=== PATIENT | female | born 1935 | race Caucasian/White ===

== ENCOUNTER 2022-03-18 16:47 | Inpatient (IN) | payer MEDICARE ==
[~2022-03-18] VITALS: Ht 167.6 cm; Wt 69.5 kg
[~2022-03-18 16:47] MED LIST: AMITRIPTYLINE H10 MG PO; ATIVAN1 MG PO; CARTIA XT120 MG PO; COMBIVENT INH14.7 GM INH; DIGITEK125 MCG PO; DIGOXIN125 MCG PO; ELIQUIS5 MG PO; FASLODEX250 MG/5 M IM; FEMARA2.5 MG NG; FLONASE SENSIM9.9 ML NAS; FLOVENT DISKU250 MCG IH; FOSAMAX70 MG; IBRANCE125 MG PO; IPRAT-ALBUT 0.5-3 ML INH; KLOR-CON 1010 MEQ PO; LETROZOLE2.5 MG PO; LEVOXYL112 MCG PO; MAGNESIUM250 M1 PO; MAXZIDE 37.5 MG-1 EA PO; METOPROLOL SUC200 MG PO; NORCO 5-325 TA1 EACH PO; OMEPRAZOLE20 MG PO; PRADAXA150 MG PO; PROAIR HFA8.5 GM IH; SYNTHROID125 MCG PO; TENORMIN25 MG PO; THERAGRAN-M AD1 EACH PO; TORSEMIDE20 MG PO; XGEVA120 MG/1.7 SUB-Q
[2022-03-18] MEDS ORDERED: ALLOPURINOL100 MG PO (17:06)
[2022-03-18] MEDS ORDERED: LEVOTHYROXINE112 MCG PO (17:07)
--- NOTE | 2022-03-19 00:52 | NUR ---
PATIENT ORIENTED TO ROOM AND CALL LIGHT. REPORT TAKEN FROM CRISTINA REYNAGA. PATIENT SETTLED INTO BED BY HINA REYNAGA. VS STABLE.
--- NOTE | 2022-03-19 03:04 | NUR ---
PATIENT RESTING IN BED WITH EYES CLOSED. EASILY ARROUSED. CALL LIGHT IN REACH AND CAN MAKE NEEDS KNOWN.
--- NOTE | 2022-03-19 05:07 | NUR ---
ASSISSTED PATIENT TO BEDSIDE COMMODE WITH 1 PERSON ASSIST. PATIENT REPORTS FEELING WEEK. USES CALL LIGHT APPROPRIATELY.
--- NOTE | 2022-03-19 05:48 | NUR ---
PATIENT HAD A BM THIS AM. BLOOD ON TOILET PAPER. PATIENT REPORTS HAVING HEMROIDS. PATIENT IS ALERT AND ORIENTED X3 (NOT TO TIME). REPORTS SEEING BIRDS IN HER ROOM. REORIENTED TO ROOM. USES CALL LIGHT APPROPRIATELY.
--- NOTE | 2022-03-19 07:36 | NUR ---
REPORT RECEIVED, CARE OF PT ASSUMED AT THIS TIME.CALL LIGHT WITHIN REACH. WILL CONTINUE TO MONITOR.
--- NOTE | 2022-03-19 08:08 | NUR ---
IN ROOM FOR ASSESSMENT AND AND MEDICATION ADMINISTRATION. PT RESTING IN BED. DENIES PAIN BUT DOES REPORT MILD NAUSEA. REFUSES NEED FOR NAUSEA MEDICATION. LUNGS SOUND DIM IN BILATERAL BASES. HEART RATE IS IRREGULAR. PULSES STRONG IN RIDAL PULSES. DIFFICULT TO PALPATE PEDAL PULSES THROUGH PT'S SIGNIFICANT LOWER EXTREMITY EDEMA. PLAN OF CARE FOR DAY ESTABLISHED. PT DOES NOT SEEM TO TRACK INFORMATION PROVIDED. BED ALARM IN PLACE. CALL LIGHT WITHIN REACH. WILL CONTINUE TO CLOSELY MONITOR.
--- NOTE | 2022-03-19 09:30 | NUR ---
2PA TO BSC FOR STOOL AND SMALL AMOUNT OF DARK URINE. LINEN CHANGED. PATIENT BACK TO BED, CALL LIGHT IN EASY REACH. FAMILY IN ROOM.
--- NOTE | 2022-03-19 11:15 | NUR ---
DR LORENZO IN ROOM AT THIS TIME TO ASSESS PT. PLAN ESTABLISHED FOR PT TO BECOME A MEDICAL FLOOR PT. ALL PT QUESTIONS ANSWERED AT THIS TIME. PT'S FRIEND IN ROOM AT BEDSIDE VISITING. CALL LIGHT WITHIN REACH. WILL CONTINUE TO MONITOR.
--- NOTE | 2022-03-19 11:54 | NUR ---
ASSESSMENT UNCHANGED PT NOW DRINKING CLEAR LIQUIDS. IV FLUIDS INFUSING. FRIEND AT BEDSIDE VISITING WITH PT. NO FURTHER NEEDS AT THIS TIME.
--- NOTE | 2022-03-19 12:40 | NUR ---
PT UP TO BSC AT THIS TIME.
[2022-03-19] MEDS ORDERED: MAGNESIUM OXID500 MG PO (13:28)
[2022-03-19] MEDS ORDERED: VENTOLIN HFA18 GM INH (13:32)
[2022-03-19] MEDS ORDERED: SYMBICORT 16010.2 GM INH (13:33)
--- NOTE | 2022-03-19 14:29 | EKG ---
[facility] [address] [place], [place] [address] Signed Atrial fibrillation Minimal voltage criteria for LVH, may be normal variant ( Perry product ) Lateral infarct , age undetermined ST \T\ T wave abnormality, consider anterior ischemia Abnormal ECG No previous ECGs available Confirmed by BOAZ LORENZO MD ([id number]) on 03/19/2022 2:29:29 PM Electronically Signed By: OBAZ LORENZO MD 03/19/22 1429 PATIENT NAME: DEBORAH BARRY VALENTE Electrocardiogram DATE OF : 37 PHYSICIAN: BOAZ LORENZO MD REPORT #: [id number] REPORT IS CONFIDENTIAL AND NOT TO BE RELEASED WITHOUT AUTHORIZATION
--- NOTE | 2022-03-19 14:31 | NUR ---
PT SAT ON BEDSIDE COMMODE FOR OVER AN HOUR, REFUSED TO GET UP. THERAPEUTIC COMMUNICATION. PT HAS A MEDIUM FORMED BM, DID NOT URINATE. RECTUM WAS PROLAPSED BUT ABLE TO BE REDUCED MANUALLY. PT NOW LAYING ON BED ON LEFT SIDE. CALL LIGHT WITHIN REACH.AND BED ALARM IN PLACE. WILL CONTINUE TO MONITOR.
--- NOTE | 2022-03-19 15:04 | NUR ---
PT BLADDER SCANNED. 95 MLS FOUND IN BLADDER. DR LORENZO UPDATED ON ASSESSMENT FINDINGS. ORDERS RECIEVED (SEE EMAR). PLAN TO STILL MOVE PT TO THE MEDICAL FLOOR.
--- NOTE | 2022-03-19 15:40 | NUR ---
PT BROUGHT TO M/S VIA BY FROM CCU WITH SOFTWARE QUALITY ASSURANCE SPECIALIST. IVF INFUSING. PT ASKING ABOUT HER LUNCH AND IS WORRIED ABOUT HER LOOKS. LUNCH TRAY BROUGHT DOWN, PT REASSURED. FRIEND ANA ROSA AT BEDSIDE.
--- NOTE | 2022-03-19 18:00 | NUR ---
500 ML FLUID BOLUS FINISHED, REPEAT BP 81/48, MANUAL RECHECK 82/48, HR 84, O2 98%. GOT PT UP TO COMMODE WITH 1PA. PT TRIED TO GO BUT NO URINE, QUARTER SIZED DROP OF SOFT STOOL, PASSING GAS, SMALL AMOUNT OF BLOOD ON TISSUE AFTER WIPING (KNOWN HEMORRHOIDS). BOTTOM IS VERY RED, NO PROLAPSE SEEN AT THIS TIME. PT RETURNED TO BED, BLADDER SCANNED AT 392 ML. NOTIFIED, AWAITING ORDERS FOR SECOND FLUID BOLUS.
--- NOTE | 2022-03-19 18:50 | NUR ---
FLUID BOLUS STARTED, PT SITTING UP IN BED STILL WORKING ON HER DINNER. PT VERY APOLOGETIC ABOUT NEEDING HELP, NOT EATING FAST ENOUGH ETC. REASSURED HER. RESP EVEN AND UNLABORED, CALL LIGHT IN REACH.
--- NOTE | 2022-03-19 19:15 | NUR ---
SHIFT REPORT RECEIVED FROM DAYSHIFT RONNELL SIDDIQUI AT BEDSIDE. pt AWAKE AND RESTING IN BED, FINISHING UP DINNER. pt VERY INTERACTIVE WITH STAFF AND APOLOGETIC REGARDING CALLING OR NEEDS. IV BOLUS INFUAING DIRECTED ALONG WITH ORDERED IV MAINTENNACE FLUIDS, IV SITE WNL. BOARD UPDATED, CALL LIGHT IN REACH.
--- NOTE | 2022-03-19 20:25 | NUR ---
SCHEDULED EVENING MED GIVEN (SEE EMAR). pt SOMEWHAT FIDGETY IN BED AND FIXATES ON THINGS LIKE BRUSHING HER TEETH, HAVING A BM, GETTING HER BREAKFAST ORDER, HER ONCOLOGIST KNOWING HER HOSPITALIZATION, ECT. pt REMAINS VERY APOLOGETIC AND MAKES STATESMENTS SUCH , "OH IM SORRY, I KNOW YOU GUYS ARE BUSY". pt REMAINS FORGETFUL, BUT ORIENTED TO SELF, PLACE, DATE- REORIENTED TO SITUATION AND TIME. pt UP TO VOID, 300MLS OUTPUT NOTED ALONG WITH SMALL PEBBLE LIKE BM PER MECHANISM INSPECTOR. pt RECENTLY FINISHED HER MIRALAX FROM [place]. LARGE VOLUMES OF GAS HEARD FROM BSC. pt SAT ON BSC FOR OVER 30 MINUTES AND THEN HAD TO BE COAXED OFF OF BSC AND REPEATEDLY STATED THINGS LIKE, "ALMOST DONE, IT'S ALMOST THERE". THERAPEUTIC COMMUNICATION PROVIDED. SMALL RECTAL PROLAPSE NOTED, MANUALLY REDUCED W/O DIFFICULTY. REMAINS IN AFIB, HR WHEN OOB WENT UP TO 168, BUT QUICKLY RETURNED TO BASELINE TO 70-90'S ONCE SITTING ON BSC. THIS RN DISCUSSED WITH CCU RONNELL ELLIOTT AND PER RONNELL ELLIOTT, TELE READING WAS LARGLY ARTIFACT AND WHEN SHE REVIEWED TELE ACTUAL HIGHEST HR WAS ONLY 120BPM, DIRECT CARE SPECIALIST MONICA UPDATED. pt REMAINED ASYMPTOMATIC DURING THIS TIME. pt BACK IN BED, BOOSTED AND BED ALARM ON FOR SAFETY. CALL LIGHT IN REACH AND ASSESSMENT COMPLETE. IV SITE WNL, BOLUS COMPLETE AND IV MAINTENACNE FLUIDS REMAIN INFUSING DIRECTED. IV SITE WNL, AND BRISK BLOOD RETURN NOTED. pt ASSISTED WITH EVENING CARES, NO OTHER ADDITIONAL NEEDS OR CONCERNS VERBALIZED. WILL CONTINUE TO MONITOR.
--- NOTE | 2022-03-19 22:29 | NUR ---
IN ROOM TO ENSURE TELE LEADS SECURE, LARGE AMOUNT ARTIFACT NOTED. pt THEN ASKING TO FOR LOTION FOR HER FACE AND ASKS "AND YOU WANT ME TO CALL YOU IF I NEED A WARM BLANKET". pt EDUCATED TO USE CALL LIGHT FOR NEEDS, BED ALARM ON AND CALL LIGHT IN REACH. AFIB REMAINS, HR 80'S.
--- NOTE | 2022-03-19 23:50 | NUR ---
call light answered by airport attendant, pt up 2pa with fww to void. pt remains very apologetic, no bm or void noted. no prolapse noted. pt back to bed, tolerated well. bed alarm on and call light in reach, airport attendant marv in room to assist with tucking in pt.
--- NOTE | 2022-03-19 23:55 | NUR ---
PT CALLED TWO TIMES, PT HEARS A PERSON TALKING TO HER, TV OFF, STILL HEARIG THIS PERSON, ASKED PT TO POINT TO WHERE VOICE IS COMING FROM, POSSIBLE IV PUMP NOISES DETERMENED CAUSE, MOVED PUMP BACK, THEN PT FEELS LIKE SHE NEEDS TO VOID, RN IN TO HELP, PT PIVOTS TO BSC 2PA FWW, SITS AWHILE, NO RESULTS, BACK TO BED, ALARM ACTIVE, NO FURTHER NEEDS AT THIS TIME
--- NOTE | 2022-03-20 01:50 | NUR ---
0200 vss, sbp somewhat soft, will monitor. pt attends dry, bladder scan result of 378, charge lpn updated. iv site somewhat positional, new dressing in place. brisk blood return noted, iv fluids resumed per md orders. no additional needs, call light in reach. bed alarm on.
--- NOTE | 2022-03-20 02:53 | NUR ---
pt RESTING IN BED WITH EYES CLOSED, ON RA. RR EVEN AND UNLABORED. NO DISTRESS NOTED. IV SITE WNL, FLUIDS INFUSING DIRECTED. BED ALARM ON AND CALL LIGHT IN REACH.
--- NOTE | 2022-03-20 05:17 | NUR ---
pt CONTINUES TO REST QUIETLY IN BED WITH EYES CLOSED, ON RA. RR EVEN AND UNLABORED. NO DISTRESS NOTED, BED ALARM ON AND CALL LIGHT IN REACH.
--- NOTE | 2022-03-20 05:45 | NUR ---
vs and i&o's complete. assessment complete no acute changes, pt reoriented to place, thought she was at an "institution". pt up to void 2pa with fww to bsc, armor reconnaissance vehicle crewman remains in room with pt. call light also in reach.
--- NOTE | 2022-03-20 06:30 | NUR ---
pt UNABLE TO VOID, BLADDER SCANNED FOR 477MLS AFTER SITTING ON BSC FOR OVER 15-20 MINUTES. IV FLUIDS COMPLETE, IV SITE WNL AND BRISK BLOOD RETURN NOTED. pt EDUCATED ON POC AND POSSIBLY DISCUSSED NEED FOR STRAIGHT CATHETER, pt IMMEDIATELY GOT UPSET AND STATES, "OH NO, YOU'RE NOT GONNA DO THAT". DR LORENZO UPDATED ON ABOVE INFORMATION AND UO OF 300MLS EARLIER IN SHIFT, PER DR LORENZO OKAY TO WAIT AND CONTINUE TO MONITOR UO. BED ALARM ON AND FRESH COFFEE PROVIDED. pt REPEATEDLY MAKES STATEMENTS R/T NEEDING TO NOTIFY HER ONCOLOGIST FOR HER HOSPITALIZATION, pt REORIENTED THAT HER DOC HERE IS DR LORENZO AND HE WILL SEE pt SOMETIME TODAY. CALL LIGHT IN REACH. SCHEDULED THYROID MED GIVEN.
--- NOTE | 2022-03-20 07:10 | NUR ---
REPORT RECEIVED FROM RONNELL BRO. PT SITITNG UP IN BED, AWAKE AND ALERT. PT WAVING AT STAFF OUTSIDE HER ROOM. NO ADDITIONAL NEEDS AT THIS TIME. BED RAILS UP. CALL LIGHT WITHIN REACH. BED ALARM ON.
--- NOTE | 2022-03-20 07:33 | NUR ---
MORNING ASSESSMENT AND MEDICATION DUE. PT CONTINUES RESTING IN BED. PT REPORTS "CAN YOU TELL ME WHY I'M HERE." EXTENSIVE EDUCATION DONE WITH PT AND PT CONTINUES TO REPEAT QUESTIONS ABOUT WHERE SHE IS AND WHY SHE IS HERE. PT HAS TROUBLE RETAINING INFORMATION BUT WHEN ASKED PT IS ABLE TO STATE WHERE SHE IS, THE MONTH AND TIME OF DAY. PT OTHERWISE INCONSISTANTLY OREINTED. PT FIXATED ON CONTACTING VARIOUS PEOPLE. PLAN MADE WITH PT AND PT CALMS AND IS ABLE TO FOLLOW DIRECTIONS. PT ALSO CONTINUES TO BE FIXATED ON "GETTING MY ONCOLOGIST IN HERE." PT ASSURED THAT HER ONCOLOGIST IS AWARE OF HER HOSPITAL STAY. PT DENIES PAIN AND NAUSEA. ONE PERSON ASSIST WITH FWW UP TO CHAIR. PT NEEDS FREQUENT QUEING. LUNG SOUNDS CLEAR BUT FOR WHEEZE NOTED IN RIGTH UPPER LOBE. NO COUGH NOTED AT THIS TIME. OXGYEN SATURATION 93% ON ROOM AIR. HEART RATE IRREGULAR WITH AFIB NOTED ON TELEMETRY MONTIROING, HEART RATE IN THE 90'S. +1 PITTING EDEMA CONTINUES TO BLE AND FEET. ABDOMEN SOFT AND NON TENDER. BOWEL TONES ACTIVE. PT CONTINUES TO DENY NEED TO VOID, MONITORING, MD AWARE OF PTS URINE OUTPUT. MEDICATIONS GIVEN. PT REMAINS UP TO CHAIR. WARM BLANKETS PROVIDED. NO ADDITIONAL NEEDS AT THIS TIME. CALL LIGHT [place]ARC[place]IO CAMILO.
--- NOTE | 2022-03-20 07:50 | NUR ---
patient in the bathroom with RONNELL Artis. then patient went to the chair for breakfast. call light with in reach. no further needs at this time.
--- NOTE | 2022-03-20 07:52 | NUR ---
PT REPORTS SHE WOULD LIKE TO GET UP TO RESTROOM. 1 PERSON ASSIST WITH FWW UP TO RESTROOM. PT SITS FOR +15 MINUTES ON TOILET. HEART RATE UP TO 120'S WHILE PT IS ON TOILET. PT VOIDS 300ML DARK YELLOW URINE. DEPENDS CHANGED. PT PERFORMS SELF CLIFFORD CARE. 1 PERSON ASSIST WITH FWW BACK TO CHAIR. WARM BLANKETS IN PLACE. CALL LIGHT WITHIN REACH. NO ADDITIONAL REQEUSTS OR COMPLAINTS AT THIS TIME.
--- NOTE | 2022-03-20 08:36 | NUR ---
BREAKFAST DELIVERED TO PT. PT TALKING WITH FRIEND ON THE PHONE. PT CONTINUES TO BE CONFUSED AND REPEATS SAME QUESITONS. PT REOIRNETED TO PLAN OF CARE AND EVENTS. PT EATING BREAKFAST. REMAINS UP TO CHAIR. CALL LIGHT WITHIN REACH.
--- NOTE | 2022-03-20 09:03 | NUR ---
PTS FRIEND, KATIE, ARRIVED TO BEDSIDE. KATIE UPDATED ON PT STATUS AND PLAN OF CARE. KATIE VERBALIZES UNDERSTANDING AND STATES HER QUESTIONS HAVE BEEN ANSWERED. KATIE AT BEDSIDE WITH PT. PT DOES NOT REMEMBER KATIE VISTING YESTERDAY. PT REORINTED TO EVENTS AND PLAN OF CARE AGAIN. PT VISITNG WITH KATIE, NO ADDITIONAL REQUESTS OR COMPLAINTS. CALL LIGHT WITHIN REACH. PT REMAINS UP TO CHAIR.
--- NOTE | 2022-03-20 09:41 | NUR ---
RN NOTIFIED OF SOFT BP. THIS ENRICHMENT ASSISTANT ATTEMPTED 3 TIMES WITH A RESULT OF 81/54, 60/47, AND 75/50.
--- NOTE | 2022-03-20 09:41 | NUR ---
THIS RN TO ROOM TO CHECK ON PT. PT TALKING WITH FRIEND ON PHONE. PT CONTINUES TO BE CONFUSED AND FORGETFUL, REPEATING SAME QUESTIONS. REHABILITATION PROGRAM MANAGER, REPORTS PTS BLOOD PRESSURE IS LOW. MANNUAL BLOOD PRESSURE TAKEN AND FOUND TO BE 84/44. PT DENIES DIZZINESS. PT DENIES PAIN AND NAUSEA. HEART RATE CONTINUES IN AFIB RYTHEM IN 100-110'S. PTS FRIEND, KATIE REMAINS AT BEDSIDE. IV SITE TO LEFT AC LEAKING, DRESSING CHANGED. DR LORENZO UPDATED REGARDING PTS ASSESSMENT AND VITAL SIGNS. AWAITING NEW ORDERS. NO ADDITIONAL NEEDS AT THIS TIME. CALL LIGHT WIHTIN REACH. PT REMAINS UP TO CHAIR.
--- NOTE | 2022-03-20 09:55 | NUR ---
NEW IV STARTED TO RIGHT FORARM PER PROTOCOL. PT TOELRATED WELL. PT REQUESTS REPOSITIONING. PT UP TO STAND FOR LESS THAN 10 SECONDS AND HEART RATE SUSTAINS IN THE 140'S. PT RECOVERS TO HEAR RATE OF 100-110'S AFTER 1 MINUTE. 1 PERSON ASSSIT WITH FWW BACK TO BED. MD UPDATED. BED RAILS UP. CALL LIGHT WITHIN REACH. BED ALARM ON.
--- NOTE | 2022-03-20 10:44 | NUR ---
NEW MEDICATIONS ARRIVED FROM [facility]. GIVEN ORDRED (SEE MAR). PT VISITING WITH FRIENDS AT BEDSIDE. PT CONTINUES ASK REPITIVE QUESTIONS. PTS FRIENDS HELPING PT TO STAY ORIENTED TO PLAN OF CARE AND ACITVIES. PHYSICAL THERAPY ARRIVED, PT ASKED TO RETURN THIS AFTERNOON AND REEVALUATE PT STATUS. NO ADDITIONAL NEEDS AT THIS TIME. CALL LIGHT WIHTIN REACH. BED RAILS UP. BED ALARM ON.
--- NOTE | 2022-03-20 11:09 | NUR ---
IV INFUSION OF DIGOXIN COMPLETE. PT FINISHED WITH BREAKFAST. PT REMAINS IN BED, REORINTED AGAIN TO PLAN OF CARE. PT ENCOURAGED TO REST AND WATCH TV. HR 90-110'S IN AFIB RYTHEM ON TELEMETRY MONITORING. NO ADDITIONAL NEEDS AT THIS TIME. CALL LIGHT WIHTIN REACH. BED RAILS UP. BED ALARM ON.
--- NOTE | 2022-03-20 11:40 | NUR ---
THIS RN TO ROOM TO CHECK ON PT. PT RESTING WITH EYES CLOSED. RESPIRATIONS EVEN AND UNLABORED. HEART RATE REMAINS IN THE 90-110'S IN AFIB RYTHEM. NO ADDITIONAL NEEDS AT THIS TIME. CALL LIGHT WITHIN REACH. BED RAILS UP. BED ALARM ON. PT ALLOWED TO REST.
--- NOTE | 2022-03-20 13:00 | NUR ---
PATIENT WENT TO THE [facility] AND HAD A SMALL BM WITH THE HELP OF RONNELL SMITH AND THIS PHARMACISTS. SHE SAT FOR A LITTLE BIT AND ONLY HAD A SMALL BM
--- NOTE | 2022-03-20 13:02 | NUR ---
THIS RN TO ROOM TO CHECK ON PT. PT EATING LUNCH. PT REPOSITIONED IN BED, HEAD OF BED ELEVATED TO 50 DEGREES. HEART RATE CONTINUES IN AFIB RYTHEM WITH HEART RATE IN THE 90-110'S. DR. LORENZO TO BEDSIDE FOR ROUNDS. BLOOD PRESSURE REASSESED, NOW 101/49. PT FEEDING SELF. NO ADDITIONAL REQUESTS OR COMPLAINTS. CALL LIGHT WITHIN REACH. BED RAILS UP. BED ALARM ON.
--- NOTE | 2022-03-20 13:37 | NUR ---
AFTERNOON ASSESSMENT AND MEDICAITON DUE. PT REMAINS IN BED WITH HEAD OF BED AT 51 DEGREES, EATING LUNCH. PT VISISTING WITH A FRIENDS AT BEDSIDE. PT REMAINS INCONSISTANTLY ORIENTED. PT STATES "I'M AT [facility] BUT I'M NOT IN THE HOSPITAL." PT OREINTED TO SELF AND MONTH AND YEAR. PT MAKES OCCATIONAL CONFUSED COMMENTS SUCH "I'M HERE BECAUSE I FELL WITHOUT ENOUGH BREAD." PT WORD DROPS WHEN TRYING TO TELL STORIES. GENERALIZED WEAKNESS TO BEL. PT REMAINS ON BED REST PER MD ORDER. LUNG SOUNDS CLEAR. HEART TONES REMAIN IRREGULAR WITH AFIB RYTHM ON MONITOR, HEART RATE 90-110. EDEMA TO BLE UNCHANGED. PT CONTINUES TO ASK REPETITIVE QUESTIONS. EDUCATION DONE AND PT REORIENTED TO EVENTS. MONITORING URINE OUTPUT. NO ADDITIONAL NEEDS AT THIS TIME. MEDICATIONS GIVEN. CALL LIGHT WIHTIN REACH. BED RAILS UP. BED ALARM ON.
--- NOTE | 2022-03-20 15:20 | NUR ---
THIS RN TO ROOM TO CHECK ON PT. 2ND MAGNESIUM DUE. PT TALKING TO HERSELF "I'M NOT GOING ANYWHERE, I'M IN CHARGE OF MYSELF. i"M GOING TO EAT ALL MY VEGETABLES." PT REORIENTED TO PLACE AND EVENTS. PT ENCROUAGED TO REST. PT CONTINUES EATING LUNCH STATING SHE WANTS TO "EAT IT ALL." NO ADITIONAL NEEDS AT THIS TIME. CALL LIGHT WITHIN REACH. BED RAILS UP. BED ALARMON.
--- NOTE | 2022-03-20 15:29 | NUR ---
PT HERE FOR SHILOH AND ELECTROLYTE IMBALANCES. PT UP TO CHAIR AND RESTROOM THIS SHIFT WITH ONE PERSON ASSIST AND FRONT WHEEL WALKER AFTER WHICH AFIB RVR WAS NOTED ON MONITOR. BLOOD PRESSURES ALSO NOTED TO BE SOFT THIS SHIFT. NEW CARDIAC MEDICAITONS STARTED. PT ON BED REST FOR REMAINDER OF SHIFT. PT TOELRATING REGULAR DIET WITH EXCELLENT APPITITE. PT AGITATED THROUGHOUT SHIFT, TALKING CONSTANTLY AND MAKING COMMENTS THAT ARE OUT OF PLACE. PT INCONSISTANTLY ORIENTED. PT VERY FORGETFUL, BED ALARM ON FOR SAFETY. NEURO ASSESSMENT OTHERWISE NEGATIVE. TELEMETRY MONITORING ON THROUGHOUT SHIFT, MAGENISUM AND POTASSIUM GIVEN. PT IS NOT VOIDING QUANTITY SUFFICIENT SO FAR THIS SHIFT, IV FLUID BOLUS GIVEN . PT USES CALL LIGHT INCONSISTANTLY.
--- NOTE | 2022-03-20 16:24 | NUR ---
PT DUE TO VOID, MEDICATIONS DUE. PT TALKING WITH FRIEND ON THE PHONE WHO REQUESTS PT HAVE A CATHETER PLACED. EDUCATION DONE WITH PT AND PTS FRIEND. PTS FRIEND STATES SHE WILL CALL BACK AT A LATER TIME. BLADDER SCAN PERFORMED, 447ML FOUND IN BLADDER. PT UP TO BEDSIDE COMODE WITH 1 PRESON ASSIST AND FWW. PT VERY AGITATED WITH USING COMODE. PT REQUESTS TO "BUY THE MATTRICE AND CUT A HOLE IN IT SO I CAN USE IT TO SIT ON." PT UNABLE TO CLARIFY WHAT HER REQUST IS. HEART RATE UP TO 160'S GETTING UP TO COMODE. SETTLES TO 110-120'S WHILE PT IS ON COMODE, AFIB RYTHEM. PT REMAINS ON BEDSIDE COMODE. CALL LIGHT WITHIN REACH. BLOCKER AND POLISHER GOLD WHEEL WAITING OUTSIDE DOOR TO MONITOR TELEMETRY AND RESPOND TO PT NEEDS.
--- NOTE | 2022-03-20 17:09 | NUR ---
PT UP TO STAND AND BACK TO BED, CLIFFORD CARE DONE, DEPENDS CHANGED. PT ABLE TO VOID 350ML YELLOW URINE. PT CONTINUES TO BE VERY AGITATED ABOUT CARES AND PEOPLE ARROUND HER. PT REPOSITIONED IN BED WITH HEAD OF BED ELEVATED TO 50 DEGREES FOR DINNER. PT EATING DINNER. HEART RATE 90-110'S WITH AFIB RYTHEM. NO ADDITIONAL NEEDS AT THIS TIME. CALL LIGHT WITHIN REACH. BED RAILS UP.
--- NOTE | 2022-03-20 17:15 | NUR ---
DR LORENZO CALLED AND UPDATED ON PT STATUS AND ASSESSMENT. NO NEW ORDERS AT THIS TIME.
--- NOTE | 2022-03-20 18:15 | NUR ---
CALL RECIEVED FROM CCU, RN MONITORING TELEMETRY. PTS HEART RATE CONTINUES TO BE ELEVATED, OCCATIONALLY UP TO 130-150'S FOR APPROXIMATELY 3-5 MINUTES AT TIME. PT CURRENTLY RESTING IN BED FINISHING DINNER. PT REPORTS FEELING COLD. NAIL BEDS NOTED TO HAVE A CYNONATIC TINGE. PT SHAKING. PT DENIES DIZZINESS, CHEST PAIN, FEELINGS OF PALPITATIONS OR OTHER NEW S/S. PT CONTINUES TO BE ANXIOUS AND REPEATING QUESTIONS AND CONCERNS OVER AND OVER AGAIN. BLOOD PRESSURE AND OXGYENATION STABLE (SEE VITAL SIGNS). DR. LORENZO CALLED AND UPDATED. NO NEW ORDERS AT THIS TIME. PT ENCORUAGED TO REST. WARM BLANKETS PROVIDED. TV TURNED OFF. LIGHTS DIMMED. NO ADDITONAL NEEDS AT THIS TIME. CALL LIGHT WITHIN REACH. BED RAILS UP. BED ALARM ON.
--- NOTE | 2022-03-20 18:35 | NUR ---
PT CONTINUES TO BE ANXIOUS EXPRESSING WORRIES ABOUT MAIL AT HOME, URINATING (STATES SHE DOES NOT NEED TO VOID), DRINKING ICE WATER, FRIENDS, LOOSING FRIENDS, AND MAY OTHER SCATTERED THOUGHTS. BREATHING EXERCISES DONE WITH PT WTIH SLOW (5 COUNT) BREATHS IN, HELD, AND OUT AGAIN. PT REPORTS THIS HELPS HER FEEL BETTER. PT ENCOURAGED TO REST. TV VOLUME DECREASED. NO ADDITIONAL NEEDS CALL LIGHT WITHIN REACH. BED RAILS UP. BED ALARM ON.
--- NOTE | 2022-03-20 19:00 | NUR ---
bedside report from Steff REYNAGA, pt eyes closed resting in bed, did not awaken pt - she has been anxious and needed to rest per report. tele hr 70-80 on monitor. call light in reach.
--- NOTE | 2022-03-20 21:46 | NUR ---
pt awakend for vitals, assessment and meds. denies needs - forgetful - re oriented well. denies needs, hr jumps from 80s at sleep to 110 with awakening. on monitor. resting in bed.
--- NOTE | 2022-03-21 01:24 | NUR ---
pt up to bsc with produce field merchandiser and supercharger repair supervisor, continues to be confused and alert.
--- NOTE | 2022-03-21 01:26 | NUR ---
heart rate up when on bsc to 100-110, pt tollerates well with assist.
--- NOTE | 2022-03-21 01:37 | NUR ---
2 pa. THIS IDENTITY MANAGEMENT CONSULTANT AND PATTERN SETTER ANDRINA HELPED PATIENT UP TO THE BEDSIDE COMMODE. PATIENT VOIDED 400 ML DARK CLOUDY URINE. PATIENT IS BACK IN BED. PRIMARY WAS WITH PATIENT.
--- NOTE | 2022-03-21 01:47 | NUR ---
pt assisted back to bed, asked this rn my last name and she remembered me and that I was from [place] and knew her friend Ric. Pt had very good conversation and memory about known connection and was more relaxed, hr down to 93 at rest - bed alarm on.
--- NOTE | 2022-03-21 02:02 | NUR ---
PATIENT ASKED SOMETHING TO EAT, STATED "I'M HUNGRY". SNACK BOX PROVIDED.
--- NOTE | 2022-03-21 05:30 | NUR ---
pt up to bsc with staff, HR is is 95-120 with activity. pt confused at times,
--- NOTE | 2022-03-21 06:11 | NUR ---
PT AWAKE, PO MEDS TAKEN WITH WATER - DENIES NEEDS - BED ALARM ON.
--- NOTE | 2022-03-21 07:59 | NUR ---
PT RESTING EYES CLOSED AT TIME OF SHIFT REPORT. UP NOW TO BSC THEN TO RECLINER. PT DENIES PAIN OR DISCOMFORTS. CALL LIGHT AND NEEDED ITEMS IN REACH VISUAL TO RN STATION
--- NOTE | 2022-03-21 10:02 | NUR ---
PT TOLERATES BREAKFAST WELL, CONTINUES UP IN THE CHAIR SPOKE TO FIREND ON THE PHONE. VISITOR PRESENT NOW X1, PT STATES SHE IS GIVEN ONLY 10 MINUTES TO VOID AND OTHER NONSENICAL THINGS. PT REMINDED SHE CAN USE THE BSC THAT HAS BEEN PADDED FOR HER OFTEN AND LONG SHE WANTS, RE-ASSURED PT AND VISITOR THAT PERHAPS THERE WAS JUST A LITTLE CONFUSION. NO FURTHER QUESTIONS.
[2022-03-21] MEDS ORDERED: ONDANSETRON ODT4 MG SL (11:37)
--- NOTE | 2022-03-21 13:00 | NUR ---
Spoke with pt and friend Sandra, she is a long time friend. Bernice and Antonia state Bernice also has other friends, Mary, who assist. Bernice lives alone, has a walker and a cane which were her mothers. She cont. to state she can live alone, per Antonia this is not correct. She and Mary have noticed a decline and pt is unable cook, clean, or shower herself. Pt is not able to take meds correctly. Pt initially declines SNF. She agrees to [facility] and [facility] then changed her mind. She does state she might go to a SNF, but mostly states she will go home. Antonia brought in pts POA, pt has scratched out names and drawn large x through it. Pt states she would like her friend Mary to be her POA. I will contact our notary to see if she will be here this week and could meet with pt and Mary. DC plan is pending at this time as I do not believe pt is safe to dc on her own.
--- NOTE | 2022-03-21 13:10 | NUR ---
PT CONTINUES UP IN THE CHAIR CHEERFUL AND TALKATIVE. HR INCREASES WITH ANY ACTIVITY AT ALL CURRENTLY 95 AT REST. TELE MONITORING CONTINUES, MEDS ADMINISTERED ORDERED. PT DENIES ANY SOB, DIZZINESS, OR DISCOMFORTS
--- NOTE | 2022-03-21 14:13 | NUR ---
PT ALERT, SITTING IN CHAIR, AND INFORMING ME THAT I SHOULDN'T COME IN BECAUSE PT PUT IT.."I STINK"! PT DOESN'T, BUT IS SURE SHE DOES. I AM FAMILIAR WITH THIS PT, SHE SEEMS TO RECOGNIZE ME, NOT QUITE SURE THOUGH. HAD PRAYER WITH PT WILL FOLLOW NEEDED
--- NOTE | 2022-03-21 14:55 | NUR ---
PT CONTINUES UP IN THE CHAIR, DOES NOT TOLERATE INCREASED ACTIVITY THIS SHIFT HR INCREASES. MEDS BEING ADJUSTED CONTINUES ON TELE
--- NOTE | 2022-03-21 17:12 | NUR ---
PT HAS BEEN UP IN THE CHAIR THIS ENTIRE SHIFT SPEAKING TO VISITORS OR ON THE PHONE. EATING EVENING MEAL CURRENTLY. NO C/O SOB, PAIN, OR OTHER DISCOMFORTS. HR IN THE 80'S AT THIS TIME
--- NOTE | 2022-03-21 17:33 | NUR ---
Medications reconciled with pharmacy records, Dr Villalobos/Dr Alcocer notes and patient interview
--- NOTE | 2022-03-21 19:00 | NUR ---
report from Antonia carroll, pt up in , call light in reach - pleasantly confused.
--- NOTE | 2022-03-21 20:26 | NUR ---
PT. ASSISTED TO THE BSC WITH FWW AND TOLERATED WELL. ASSISTED WITH BEDTIME ADLS. LEFT RESTING IN BED WITH CALL LIGHT IN REACH, ALARM ON AND CURTAIN PARTIALLY OPEN.
--- NOTE | 2022-03-21 20:37 | NUR ---
pt in bed, assessment complete - hr is 70-80's at rest tele 7, sl iv, tollerating reg. diet - bed alarm on for pleasant confusion. ble edema noted pitting- pt reports that is normal for her. pt remembers this rn,
--- NOTE | 2022-03-22 00:44 | NUR ---
PT C/O NEED FOR TUMMS OR SOMETHING FOR TUMMY - CONCAVER PROVIDED PT MALOXX PO FOR DISCOMFORT. ORDER IN AND ON MAR
--- NOTE | 2022-03-22 01:10 | NUR ---
PT ANXIOUS - REASSURED THAT IT WAS NIGHT TIME AND OK TO GO TO SLEEP - PT CONFUSED YET PLEASANT - SEEMS WORRIED, EAGER TO PLEASE. CALL LIGHT AND BED ALARM ON.
--- NOTE | 2022-03-22 01:51 | NUR ---
PT WIDE AWAKE, HAS NOT SLEPT YET - PO MEDS GIVEN AFTER VITALS TAKEN. DENIES NEEDS, BED ALARM ON.
--- NOTE | 2022-03-22 05:50 | NUR ---
PO THYROID MEDS GIVEN WITH WATER - PT ORIENTED TO SLITTING MACHINE FEEDER FRIEND - VISITING AND CALL LIGHT IN REACH.
--- NOTE | 2022-03-22 09:25 | NUR ---
PT ON ROOM AIR, UP IN CHAIR EATING, METORPOLOL HELD BP 91/56, TELE#[address], NO C/O CP OR SOB. PLEASANTLY ALERT AT TIMES AND CONFUSED AT TIMES, REDIRECTS SELF EASILY. COOP WITH ASSESSMENT. DEMAR PATENT RA. CALL LIGHT AT HANDS REACH
--- NOTE | 2022-03-22 10:00 | NUR ---
Notified by Mandy TOLBERT/lilian. She will meet with Pt and friend to notorize LILIYA tomorrow at 8 am. Called Mary and updated, she will be here by 8 am. Discussed placement with Mary as she states pt cannot live alone at this time. Pt refused [facility].Mary feels pt would go the [facility] in [place]. I will send the chart.
--- NOTE | 2022-03-22 10:01 | NUR ---
DR LORENZO NOTIFIED OF BP. NEW ORDERS FOR IVF BOLUS OBTAINED
--- NOTE | 2022-03-22 10:30 | NUR ---
OT AND PT WORKING WITH PT, PT ASYMPTOMATIC, NO C/O LIGHTHEADNESS, SOB TELE#[address], CLEVE PUENTES, IN CHAIR,
--- NOTE | 2022-03-22 10:31 | NUR ---
TACHY AT 140-159 WHEN UP WITH PT, DENIES SOB OR CP, TELE#[address]
--- NOTE | 2022-03-22 11:25 | NUR ---
Pt out of room walking with PT, room air, 1PA/FWW, tele in place, tachy at times with exertion, pulse 100-138bpm, denies SOB or CP at this time
--- NOTE | 2022-03-22 12:10 | NUR ---
Tolerated well, back to chair, tele#[address] still on afib rhtythm, denies CP or SOB, IVF infusing. all procedures explained, pleasantly confused, easily reoriented
--- NOTE | 2022-03-22 14:00 | NUR ---
Spoke with Dr. Ford to check when pt will be dischargable. He states 1-2 more days. Texted Yumiko at [facility] to check for rooms and she states they will have rooms this week. Faxed Face sheet, H&P, progress notes, covid vac, covid test, and med list to Yumiko. Spoke with Ashley and she states she will consider rehab. She does not want to go the [facility] in [facility]. Let her know I am checking for a room. She asks about her cancer treatments. I called the [facility] clinic and pt take a pill that is filled for the month Ivance and also Faslodex injections. Per the clinic, meds could be pushed out until rehab is completed. Pt can take her Ivance with her to take. Pt will consider this.
--- NOTE | 2022-03-22 14:10 | NUR ---
PT SITTING IN CHAIR, MOTIONED ME IN RM SAID [facility], GETTING MORE CONFUSED. STILL THINKS SHE "STINKS LIKE A BUFFALO". REQUESTED I TELL RN'S IN [facility]ER CLINIC [facility] FOR HER AND THAT SHE LOVES THEM. ACKNOWLEDGED. GAVE BLESSING WILL FOLLOW NEEDED
--- NOTE | 2022-03-22 15:00 | NUR ---
Notified by Yumiko they could take this pt tomorrow. Let her know she will not be ready for dc for 1 or 2 more days. She will check if they have a bed open. Updated med adjustment cont for pt Afib.
--- NOTE | 2022-03-22 15:57 | NUR ---
UP IN CHAIR, LEGS ELVATED, MAG RIDER INFUSING, MEDICATED WITH TYLENOL PO PER L HIP PAIN, VERY ANXIOUS. REASSURED, TELE#[address], PULSE 75, AFIB RHYTHM, DENIES SOB, OR CP. HAS HAD MULTIPLE VISITORS, PROCEDURES EXPLAINED. FIXATTED ON HAVING A REAL SHOWER, HAS HAD 2 BED BATHS, REASSURED, CALMER, CALL LIGHT, PHONE AND FLUIDS AT HANDS REACH
--- NOTE | 2022-03-22 16:37 | NUR ---
Pt in chair, awake, visiting with friends, less anxious. call light and fluidsa t hands reach
--- NOTE | 2022-03-22 18:23 | NUR ---
PT ON ROOM AIR, IN CHAIR MOST OF THIS SHIFT, HAS BEEN EATING WELL, TOLERATIANG MEALS WELL, VOIDING QS. WORKING WITH PT/OT, TOLERATED FAIR. TELE#[address] AFIB RHYTHM, PULSE UP TO 150'S WHEN WORKING WITH OT, AMBULATED WITH PT ONE LOOP AROUDN NURSING STATIONS AND BACK TO ROOM, PULSE MID 140'S AND DECREAED TO 100'S AND TO 81 ON RETURN TO CHAIR. NO SOB NOTED WITH EXERTION. WAS MEDICATED X1 PER L HIP PAIN, EFFECTIVE. RECEIVED AN IVF BOLUS PER HYPOTENSION, TOPROL WAS HELD EARLIER ON SHIFT PER LOW BP, MED AWARE. RESUMED LATER BP WERE MOTE WNL. PT ASYMPTOMATIC, DENIES H/A OR LIGHTHEADNESS. SEE VS FLOW SHEET DR NUGENT. RECEIVED MAG AND NA REPLACEMENT. TOLERATING WELL. HAS HAD MULTIPLE VISITORS, CONTINUES TO DECLINE PLACEMENT. CM TALKED TO PT EARLIER, SEE NOTES. ALERT TO SELF AND SITUATION, PLEASANTLY CONFUSED. EASILY REDIRECTABLE.
--- NOTE | 2022-03-22 19:00 | NUR ---
BEDSIDE REPORT FROM NELSY REYNAGA, PT UP IN CHAIR - PLEASANTLY CONFUSED WITH QUESTIONS OF DATE, TIME AND PRESIDENT. VERY GOOD RECALL WITH MY LAST NAME AND VISITING ABOUT HER COMMON FRIEND. PT DENIES NEEDS - UP EATING DINNER STILL WITH CALL LIGHT IN REACH.
--- NOTE | 2022-03-22 21:00 | NUR ---
2 PA HELPED PATIENT UP FROM CHAIR TO THE BATHROOM USING WALKER THEN TO BED. PATIENT DID PM CARE. ASSISTED IN CLIFFORD CARE. APPLIED BARRIER CREAM ON CLIFFORD AREA. BED ALARM ON FOR SAFETY.
--- NOTE | 2022-03-22 21:19 | NUR ---
pt up in ch, i/o and vitals done, po meds given and trazadone for sleep.
--- NOTE | 2022-03-22 21:50 | NUR ---
THIS RN SAT WITH PT TO REASSURE HER. PT IS FEARFUL, TEARFUL AND FRIGHTENED ABOUT ADDMISSION AND DISCHARGE. SHE KEEPS TALKING IN CIRCLES TRYING TO PROVE HER MEMORY AND SHE KNOWS IT IS FAILING HER. SHE IS FRUSTERATED WITH HER MEMEORY AND AGING, SHE IS GETTING PARANIOID THAT SHE HAS TO PROVE EVERYTHING TO EVERYONE TO PROVE SHE IS NOT CRAZY. AT THIS TIME SHE IS REFUSING TO TAKE HER ELIQUIS AND THAT SHE HAS A LIST OF HER MEDS AND SHE KNOWS WHAT SHE TAKES, RN REDIRECTED PT TO HAVE HER TELL ME A STORY OF WHEN SHE WAS A [employer] WORKER - SHE SETTLES DOWN AND REPEATS A LOT, AND STOPS TO TELL ME SHE IS NOT CRAZY... THEN SHE AGREES TO TAKE THE MEDS. TRAZADONE FOR SLEEP IS ALSO GIVEN AT THIS TIME. PT IS MOVED TO BED AND VITALS CHECKED AGAIN THEY HAVE BEEN LOW. LOPRESSOR IS RE SCHEDULED FOR MIDNIGHT IF IN PARAMETERS.
--- NOTE | 2022-03-23 01:20 | NUR ---
pt awake - has not slept yet, vitals within parameter - pt not wanting to take medication - very skeptical of her care/meds. agree to take meds with pudding. pt sad and saying she just wants to go home, she is ready to go home now - very greatful for her care complementing staff - telling staff to go ahead and go home now to get some rest - leave her here and let her be.... bed alarm on and call light in reach.
--- NOTE | 2022-03-23 05:08 | NUR ---
pt in bed wide awake - has not slept this shift in spite of trazadone 50 mg po. pt is fretful, call light in reach.
--- NOTE | 2022-03-23 07:10 | NUR ---
Report from Glen Steven RN. Patient resting in bed with eyes closed, respirations even and unlabored. Call light in reach, bed rails up X2. Allowed to rest at this time.
--- NOTE | 2022-03-23 08:00 | NUR ---
Notified by Mandy Lomeli, she was told by staff they could not complete POA today as pt is sleeping. In and spoke with Jyothi, restaurant general manager. Mary Auguste and Mandy to room to complete POA.
--- NOTE | 2022-03-23 08:30 | NUR ---
Notified by Mary and Mandy, pt has changed her mind and does not agree to complete POA. Mary now stating she will no longer consider being the POA. I encouraged them to attempt to find the completed POA from last year.
--- NOTE | 2022-03-23 09:30 | NUR ---
Notified in 929 report this pt is dischargeable today by Dr. Ford. Pt also agreed to go the SNF per Dr Ford, when he spoke with her last. Contacted Crystal at [facility] after report and she states if they can get orders soon, they could take this pt today at [address] Ford updated.
--- NOTE | 2022-03-23 09:31 | NUR ---
AWAKE AND ALERT, ORIENTED. IS DEMONSTRATING PARANOID TYPE BEHAVIOR, CONCERNED ABOUT "REQUIREMENTS." DOES NOT FINISH HER SENTENCES/THOUGHTS AT TIMES. TAKES MEDICATIONS, UNSURE WHETHER OR NOT SHE WANTS HER MIRALAX, LEFT AT BEDSIDE. ASSESSMENT COMPLETED. CALL LIGHT IN REACH, BED RAILS UP X2.
[2022-03-23] MEDS ORDERED: METOPROLOL SUC100 MG PO (11:25)
[2022-03-23] MEDS ORDERED: DIGITEK125 MCG PO (11:25)
--- NOTE | 2022-03-23 11:38 | NUR ---
In and spoke with pt. Todd Denn[facility] will accept her today for rehab. Pt declines to go. We discussed she had agreed to go to Dr. Fodr. Pt denies this. I discussed with pt she has met criteria for discharge and I have found a safe discharge for her. If she does not want to go, she will need to dc to home. She is happy with this. I stated my concern she fell last week, she she does not feel she fell as much as her friends stated. We discussed her opportunity for rehab to get stronger so she can go home. Pt will not agree. I again asked if she is interested in [facility] and [facility] and she declines. Dr. Ford updated. He will write dc orders and will order HH.
--- NOTE | 2022-03-23 12:15 | NUR ---
PATIENT HAS NOT HAD ANY URINE OUTPUT THIS MORNING, THIS RENTAL AGENT AND RENTAL AGENT TIA IN ROOM TO ASSIST PATIENT TO BR WITH FWW. PATIENT VERY CONFUSED, REFUSING TO GET OUT OF BED. PATIENT TALKS ABOUT TIME FRAMES AND SHE'S JUST "WAITING TO SEE WHAT THE PLAN IS FOR A SHOWER." AFTER SEVERAL MINUTES, RN IS CALLED INTO ROOM. PATIENT AGREES TO TOILET AND SHOWER. PRIVACY GIVEN, PATIENT ON TOILET FOR LONGER THAN 20 MINUTES, MONITORED BY THIS RENTAL AGENT. PATIENT THEN REFUSES TO GET OFF TOILET, CONTINUES TO CLEAN HERSELF WITH WIPES. MEDICAL BILLING AND CODING INSTRUCTOR CALL IN FOR ASSISTANCE, PATIENT ASSISTED OFF TOILET AND ONTO SHOWER CHAIR FOR SHOWER. PATIENT ENJOYED SHOWER, DRESSED IN PERSONAL CLOTHING AND WAITING FOR D/C.
--- NOTE | 2022-03-23 12:40 | NUR ---
In and asked pt which HH she would like to use. She would like them to visit her so she can interview them. Let her know this is not how this works. They will only visit her after they recieve orders. She does agree to use whichever can get in first. I will contact [facility] and [facility] to check their scheduled. Called both and [facility] is 3 weeks out and [facility] can hopefully see the end of next week. Jenny Bose, ACEW stopped by my office and requesting what help pt can receive. Updated to what I have attempted to provide for this pt and she has refused all. She has agreed to set up pts meds and monitor she takes them correctly. She also agrees to meet pt at her home when she discharges today. Mary initially agreed to take her, but has another appt. I will send pt in a WC van for safety. Called and set up transport at 2 pm. Jenny will meet pt at her home and help her get inside. Notified Yumiko at [facility], pt has declined. Called and updated the Ca clinic, pt has declined placement. They will also call and check on this pt.
--- NOTE | 2022-03-23 12:53 | NUR ---
RONNELL SMITH DISCUSSED WITH ME PT DEMEANOR TODAY. PT CHANGED MIND RREGARDING SHOWER, VERY CONFUSED. PT TO DC TODAY. WILL CONTACT PT
--- NOTE | 2022-03-24 16:24 | NUR ---
Received a message from Jenny TOLBERT this AM regarding Bernice Maldonadop. Attempted to return call x2. Was able to reach at 1624. She states things are not going well with this pt at home. She is now refusing her meds. She did take my advice and call APS. The POA also came to pts home. Pt has decided this admission she no longer wants this person as her POA. Dr Villalobos also spoke with pt and pt cont. to refuse placement and meds. Dr. Villalobos discussed hospice with pt. also refusing hospice. She will also call [facility]PS for this pt. I encouraged Jenny to contact [facility] on her behalf [facility] and hire a cg.. She is concerned how they would be payed. I encouraged her to speak with the POA to see if he has financial poa. Let Jenny know pt has 30 days for placement to a SNF. She can contact Dr. Villalobos for SNF orders if there are any beds open.
== END 2022-03-23 13:55 | disposition home or self-care (01) | DRG 682 ==
LOC: ED 16:47 → CCU 21:45 → MS 21:45
PROVIDERS: ADMIT Internal Medicine; ATTEND Internal Medicine
DX: N17.9 Acute kidney failure, unspecified (principal); G93.41 Metabolic encephalopathy; E87.1 Hypo-osmolality and hyponatremia; C78.00 Secondary malignant neoplasm of unspecified lung; C79.51 Secondary malignant neoplasm of bone; I48.20 Chronic atrial fibrillation, unspecified; E86.0 Dehydration; E87.6 Hypokalemia; Z20.822 Contact with and (suspected) exposure to COVID-19; E80.6 Other disorders of bilirubin metabolism; F03.90 Unspecified dementia, unspecified severity, without behavioral disturbance, psychotic disturbance, mood disturbance, and anxiety; E03.9 Hypothyroidism, unspecified; D63.0 Anemia in neoplastic disease; Z88.8 Allergy status to other drugs, medicaments and biological substances; Z90.13 Acquired absence of bilateral breasts and nipples; Z96.651 Presence of right artificial knee joint; Z90.710 Acquired absence of both cervix and uterus; Z79.899 Other long term (current) drug therapy; J44.9 Chronic obstructive pulmonary disease, unspecified; C50.912 Malignant neoplasm of unspecified site of left female breast; C50.911 Malignant neoplasm of unspecified site of right female breast; W18.30XA Fall on same level, unspecified, initial encounter; R79.89 Other specified abnormal findings of blood chemistry
CPT/HCPCS: 36415; 70450; 71045; 74018; 80048; 80053; 80076; 80162; 81001; 82140; 82553; 83735; 84484; 85025; 93005; 93010; 94760; 97110; 97116; 97163; 97167; 97535; A9270; C9803; J1160; J3475; J3480; J7040; J7120; J7121; U0003

== ENCOUNTER 2022-03-27 11:37 | Inpatient (IN) | payer MEDICARE ==
[~2022-03-27] VITALS: Ht 167.6 cm; Wt 73.6 kg
[~2022-03-27 11:37] MED LIST changes: +ALLOPURINOL100 MG PO; +LEVOTHYROXINE112 MCG PO; +MAGNESIUM OXID500 MG PO; +METOPROLOL SUC100 MG PO; +ONDANSETRON ODT4 MG SL; +SYMBICORT 16010.2 GM INH; +VENTOLIN HFA18 GM INH
--- OUTSIDE RECORDS SUMMARY | 2022-03-27 11:40 | XMS ---
PreManage Notification: DEBORAH BARRY Security Product Assembler Events No recent Security Events currently on file CRITERIA MET - [facility] - 2 Visits in 30 Days [facility] Internal Medicine Current PHONE: Unknown MIKAEL Jeffers Internal Medicine: Medical Oncology Current DEMARCUS PHONE: [phone] Annelise has no Care Guidelines for this patient. Bianka VISIT COUNT (12 MO.) 2 [facility] TOTAL 2 NOTE: Visits indicate total known visits. ED/UCC VISIT TRACKING (12 MO.) 03/27/2022 11:37 [facility] TYPE: Emergency COMPLAINT: - WEAKNESS 03/18/2022 16:47 [facility] TYPE: Emergency COMPLAINT: - WEAKNESS INPATIENT VISIT TRACKING (12 MO.) 03/18/2022 21:45 [facility] TYPE: Medical Surgical COMPLAINT: - ACUTE KIDNEY INJURY [id number]
[2022-03-27] MEDS ORDERED: METOPROLOL SUC100 MG PO (15:00)
[2022-03-27] MEDS ORDERED: TORSEMIDE20 MG PO (15:03)
[2022-03-27] MEDS ORDERED: DILTIAZEM 24HR120 MG PO (15:04)
[2022-03-27] MEDS ORDERED: POTASSIUM CHLO20 ME2 PO (15:05)
--- NOTE | 2022-03-27 15:34 | NUR ---
REPORT FROM VALENTE HERMAN RN.
--- NOTE | 2022-03-27 16:00 | NUR ---
Dr. Gustafson notified of open wounds to buttocks and labia bilat. PORB Dr. Gustafson/Meenakshi Lincoln, RONNELL, for indwelling catheter to be inserted.
--- NOTE | 2022-03-27 16:48 | NUR ---
MED REC COMPLETE
--- NOTE | 2022-03-27 16:59 | NUR ---
PATIENT TO MED SURG ROOM 120. PATIENT INCONTINENT OF STOOL, RECTAL AND CLIFFORD AREA WITH DRIED STOOL, SEVERE EXCORIATION AND BLEEDING. PATIENT WITH DRIED STOOL DOWN LEGS AND ON FEET. PATIENT GIVEN A BED BATH, JUSTICE CATHETER PLACED. PICTURES TO CHART. X2 SMALL ALLEVYN TO BLISTERS ON COCCYX, BARRIER CREAM TO THE REST OF CLIFFORD AREA. BLISTER NOTED ON THE TOP OF BOTH FEET, 4+ EDEMA TO LOWER LEGS AND FEET, EXTREMITIES ARE COOL. TELE 8 IS ON. THERESE DRAKE POA IS AWARE OF PATIENT'S PHYSICAL CONDITION AND THAT SHE NEEDS AROUND THE CLOCK CARE AT THIS TIME. PATIENT HAS FRESH ATTENDS ON, JUSTICE DRAINING DARK YELLOW URINE AND 1000ML IMMEDIATE URINE RETURN AFTER PLACEMENT. PATIENT HAS WARM BLANKETS ON, DENIES PAIN OR NAUSEA, AND IS SLEEPY AT THIS TIME. PLAN TO TURN Q2H.
--- NOTE | 2022-03-27 17:41 | EKG ---
[facility] [address] [place] [address] Signed Atrial fibrillation with a competing junctional pacemaker Minimal voltage criteria for LVH, may be normal variant ( Roy product ) Nonspecific ST and T wave abnormality Abnormal ECG When compared with ECG of 18-MAR-2022 18:24, QRS duration has decreased Criteria for Lateral infarct are no longer present ST no longer depressed in Lateral leads T wave inversion no longer evident in Anterior leads Confirmed by Maria D Messina MD () on 03/27/2022 5:40:45 PM Electronically Signed By: MARIA D MESSINA MD 03/27/22 174 PATIENT NAME: DEBORAH BARRY VALENTE Electrocardiogram DATE OF : 37 PHYSICIAN: MARIA D MESSINA MD REPORT #: [id number] REPORT IS CONFIDENTIAL AND NOT TO BE RELEASED WITHOUT AUTHORIZATION
--- NOTE | 2022-03-27 18:34 | NUR ---
PATIENT ATTENDS CHECKED, NO STOOL AT PRESENT. PATIENT REPOSITIONED TO RIGHT SIDE AT 1815. WARM BLANKETS PROVIDED.
--- NOTE | 2022-03-27 18:35 | NUR ---
PATIENT LYING IN BED. VITALS COMPLETED, AND OUTPUT COMPLETED. PATIENT WANTED TO WAIT TO EAT. JUSTICE DRAINED AND DOCUMENTED. PT HAS NO OTHER NEEDS AT THIS TIME. CALL LIGHT WITHIN REACH.
--- NOTE | 2022-03-27 19:43 | NUR ---
REPORT RECEIVED FROM DAY SHIFT RN. PT LYING IN BED ALERT AND ORIENTED. DENIES NEEDS. WHITE BOARD UPDATED. CALL LIGHT IN REACH.
--- NOTE | 2022-03-27 19:47 | NUR ---
REPORT RECEIVED FROM DAY SHIFT RN. PT LYING IN BED RESTING WITH EYES CLOSED. RESPIRATIONS EVEN. CALL LIGHT IN REACH.
--- NOTE | 2022-03-27 22:30 | NUR ---
PT AWAKE IN BED. ALERT AND ORIENTED. EVENING ASSESSMENT COMPLETE. SCHEDULED MEDS ADMIN PER EMAR. PT DENIES PAIN OR NAUSEA. OCCASIONAL LOOSE COUGH NOTED. 2L/NC IN PLACE. JUSTICE PATENT. BLE EDEMA NOTED. BLISTERS ON TOPS OF FEET NOTED. BLISTER ON RIGHT FOOT INTACT. HEEL PROTECTORS PLACED. PT REPOSITIONED IN BED WITH PILLOWS. DENIES QUESTIONS OR CONCERNS. CALL LIGHT IN REACH.
--- NOTE | 2022-03-28 00:58 | NUR ---
PT AWAKE UPON ENTERING ROOM. REPOSITIONED IN BED WITH PILLOWS. ASSISTED WITH SIPS OF WATER. NO FURTHER NEEDS. CALL LIGHT IN REACH.
--- NOTE | 2022-03-28 03:09 | NUR ---
VS AND I&O COMPLETE. BP LOW. MANUAL CHECK 82/44. HR 70-80'S. PT ASYMPTOMATIC, REPORTS CHRONIC LOW BLOOD PRESSURE. DR. MESSINA NOTIFIED. NEW PRN TELEPHONE ORDERS RECEIVED VERIFIED WITH READBACK METHOD. PT REPOSITIONED IN BED WITH PILLOWS. WARM BLANKET PROVIDED. NO FURTHER NEEDS.
--- NOTE | 2022-03-28 04:57 | NUR ---
IN TO REASSESS BLOOD PRESSURE. PT REQUESTING ASSISTANCE TO BSC FIRST. 2PA WITH FWW TO BSC TO "PASS GAS", UNABLE TO HAVE BM. STAFF ASSIST WITH CLIFFORD CARE. DAILY WEIGHT OBTAINED. GAIT WEAK AND UNSTEADY. BLISTER ON RIGHT GREAT TOE POPPED DURRING TRANSFER. HEEL PROTECTORS IN PLACE. BLOOD PRESSURE WNL. PRN INHALER ADMIN PER PT REQUEST. OCCASIONAL LOOSE NON PRODUCTIVE COUGH NOTED. HOB ELEVATED. WARM BLANKET PROVIDED. NO FURTHER NEEDS.
--- NOTE | 2022-03-28 07:33 | NUR ---
PT IN BED. FRESH ICE WATER GIVEN. NO NEEDS. RN IN ROOM. CALL LIGHT WITHIN REACH.
--- NOTE | 2022-03-28 07:34 | NUR ---
PT SLEEPING SOUNDLY AT TIME OF SHIFT REPORT, LEFT UNDISTURBED. AWAKE NOW DENIES DISCOMFORTS OR NEEDS OF. FRESH H20 TO BEDSIDE CALL LIGHT AND NEEDED ITEMS IN REACH.
--- NOTE | 2022-03-28 09:00 | NUR ---
RECVD UPDATED REGARDING PATIENTS ADMISSION FROM MACO REYNAGA. MACO REYNAGA STATES THAT MANA AND NOELLE WERE PRESENT DURING PATIENTS ADMISSION. INTO PATIENT ROOM, PATIENT AWAKE IN BED. DISCUSSED PRIOR DISCHARGE CONCERNS OF SAFE RETURN TO HOME, PATIENT DECLINING PLACEMENT AND UPDATE REGARDING PREVIOUS POA DOCUMENTATION. PATIENT REMAINS ADAMANT THAT SHE STILL DOES NOT WHAT TO DISCHARGE TO A FACILITY FOR FURTHER CARE. DISCUSSED THE OPTION OF HIRING 24 HOUR CAREGIVING. PATIENT STATES "I DON'T WANT THEM THERE ALL OF THE TIME." PATIENT STATES SHE STILL BELIEVES SHE IS ABLE TO CARE FOR HERSELF AT HOME. THIS RN ASKED THE PATIENT DIRECTLY IF SHE HAD CONSIDERED THE CARE OR PLACEMENT SHE WILL REQUIRE IN THE FUTURE GIVEN HER DIAGNOSIS. PATIENT ASSURES ME SHE HAS CONSIDERED THIS STATING "I'M NO DUMMY, BUT I DEAL WITH THAT WHEN I GET THERE." ASKED IF PATIENT HAD BEEN ABLE TO DISCUSS CHANGES MADE TO HER POA WITH THE INITIAL NOTARY AT [facility]. PATIENT STATES SHE IS WORKING ON THAT. CASE MANAGEMENT ASSESSMENT COMPLETE. PER MACO REYNAGA PATIENT FRIEND NOELLE IS TO RETURN THIS AFTERNOON. WILL DISCUSS CONCERNS WITH HIM AT THAT TIME HE IS HER APPOINTED HEALTH CARE PROXY.
--- NOTE | 2022-03-28 09:03 | NUR ---
PT CONTINUES SITTING UP IN BED QUIET ALERT. EATS 50% OF MORNING MEAL ENSURE PRESENT ON BEDSIDE TABLE. PT HAS A LOOSE MOIST COUGH ENCOURAGED HER TO MOVE SECRETIONS AROUND. HEEL PROTECTORS REPLACED PT DENIES NEEDS OF. CALL LIGHT IN LAP
--- NOTE | 2022-03-28 10:20 | NUR ---
PT LAYING IN BED. 2 CNAS IN ROOM. PT REPOS ONTO L. SIDE. BRIEF CHECKED AND OK. NO NEEDS. CALL LIGHT WITHIN REACH.
--- NOTE | 2022-03-28 10:27 | NUR ---
DR MESSINA IN TO SEE PT DISCUSSED CONDITION AND PLAN GOING FORWARD, ALL QUESTIONS ANSWERED
--- NOTE | 2022-03-28 11:15 | NUR ---
CLIFFORD CARE COMPLETED AND JUSTICE CARE DONE. AREA IS EXCORIATED AND "SORE" PER PT REPORT. AGREES DESITIN MAKES IT FEEL BETTER.
--- NOTE | 2022-03-28 12:22 | NUR ---
PT UP TO THE CHAIR WORKED WITH P/T THEN O/T. VISITOR PRESENT SHE EATS LUNCH, CALL LIGHT IN LAP
--- NOTE | 2022-03-28 13:08 | NUR ---
PT was eating lunch, which she stated whe was well pleased with. Stated she would, "like to be more in control" but appeared to be in good spirits and stated she was overall satisfied with care. Friend was in the room. We prayed for comfort and healing.
--- NOTE | 2022-03-28 13:14 | NUR ---
PT IN CHAIR. VITALS AND IS AND OS COMPLETE. RN NOTIFIED OF BP AND O2 READING. NO NEEDS. CALL LIGHT WITHIN REACH.
--- NOTE | 2022-03-28 18:34 | NUR ---
PT UP IN THE CHAIR MOST OF THIS SHIFT, RESTING IN BED NOW EATING A SALAD FOR EVENING MEAL. DENIES SOB OR OTHER DISCOMFORTS. CALL LIGHT IN LAP, REMINDED TO CALL FOR NEEDS
--- NOTE | 2022-03-28 19:10 | NUR ---
REPORT RECEIVED FROM DAY SHIFT RN. PT LYING IN BED ALERT AND ORIENTED. VISITORS IN ROOM. NO NEEDS. CALL LIGHT IN REACH.
--- NOTE | 2022-03-28 21:35 | NUR ---
EVENING ASSESSMENT COMPLETE. SCHEDULED MEDS ADMIN PER EMAR. DR. CALI NOTIFIED OF LOW BP. METOPROLOL HELD AT THIS TIME. PT DENIES PAIN OR NAUSEA. DENIES SOB. 3.5L/NC. BLE EDEMA NOTED. JUSTICE CARE DONE BY CAMPUS EXECUTIVE DIRECTOR. CREAM APPLIED TO EXCORIATED CLIFFORD AREA. ASSISTED PT TO REPOSITION. PT DENIES QUESTIONS OR CONCERNS. CALL LIGHT IN REACH.
--- NOTE | 2022-03-28 22:26 | NUR ---
BP REASSESSED. WILL CONTINUE TO HOLD METOPROLOL PER CONVERSATION WITH DR. CALI. HR 60-80'S. ASSISTED PT TO REPOSITION. NO FURTHER NEEDS.
--- NOTE | 2022-03-29 01:36 | NUR ---
PT RESTING IN BED WITH EYES CLOSED. AWAKENS EASILY. REPOSITIONED IN BED WITH PILLOWS. BLE ELEVATED ON PILLOW. SOCKS AND HEEL PROTECTORS CHANGED DUE TO WEEPING SKIN. BP REMAINS LOW. PT ASYMPTOMATIC. ASSISTED WITH SIPS OF WATER. NO FURTHER NEEDS. CALL LIGHT IN REACH.
--- NOTE | 2022-03-29 03:50 | NUR ---
2PA TO REPOSITION IN BED WITH PILLOWS. PT REPORTS SHE IS RESTING COMFORTABLY. NO NEEDS AT THIS TIME.
--- NOTE | 2022-03-29 05:49 | NUR ---
VS, I&O AND DW COMPLETED. PT TOLERATED WELL. ICE WATER PROVIDED. NO OTHER NEEDS. CALL LIGHT IN REACH, RAILS UP.
--- NOTE | 2022-03-29 07:30 | NUR ---
PT SLEEPING SOUNDLY AT TIME OF SHIFT REPORT, LEFT UNDISTURBED. FRESH H20 TO BEDSIDE, CALL LIGHT IN REACH. [address] BREATHING EVEN AND UNLABORED.
--- NOTE | 2022-03-29 08:22 | NUR ---
PT UP TO THE CHAIR FOR BREAKFAST.
--- NOTE | 2022-03-29 08:46 | NUR ---
PT UP TO CHAIR FROM BED W/2PA FROM THIS CNA2 & RN KATIE. FWW WHICH SHE TOLORATED WELL. THIS CNA2 CHANGED BED LINENS AFTER TRANSFER. PT WAS GIVEN MEDS BY RN AND SET UP FOR BREAKFAST. I GAVE PT REMOTE SHE IS WATCHING TV WHILE EATING BREAKFAST AND IS COMFORTABLE. CALL LIGHT IN REACH. REMIMDED TO USE IF SHE NEEDED ANYTHING.
--- NOTE | 2022-03-29 09:01 | NUR ---
PT CONTINUES IN THE CHAIR WATCHING TV AND EATING BREAKFAST. DR CALI NOTIFIED OF LOW BP SHE CONFIRMS MORNING MEDS ARE TO BE GIVEN NO NEW ORDERS
--- NOTE | 2022-03-29 09:13 | NUR ---
DR CALI IN TO SEE PT DISCUSSES PLAN GOING FORWARD ALL QUESTIONS ANSWERED, PT VERBALIZES UNDERSTANDING
--- NOTE | 2022-03-29 10:00 | NUR ---
Spoke with Bernice with Dr. Keene present. She is stating she will go to rehab. She then states she won't go to [place] and doesn't want to stay overnight anywhere. Dr. Keene let her know she needs to stay and pt states she will go if she must. I will look for placement.
--- NOTE | 2022-03-29 10:10 | NUR ---
Anthony Calderon at [facility] and she replied they do not have any beds open and they are not taking any wound pts.
--- NOTE | 2022-03-29 10:27 | NUR ---
DC HAND BOX COVERER AND DR CALI MEET WITH PT TO DISCUSS NEED FOR PLACEMENT. PT VERBALIZES AGREEMENT.
--- NOTE | 2022-03-29 10:46 | NUR ---
PT VITALS/I&O'S TAKEN AND DOCUMENTED. PT WAS IN CHAIR. THIS CNA2 D/C'D FOLY PER RN KATIE W/NO COMPLICATIONS. PERFORMED CLIFFORD CARE AFTER REMOVAL W/DESITIN APPLIED AFTER. COMPLETE BED BATH DONE. PT PERFORMED OWN ORAL CARE. PT WAS VERY "GRATEFUL". GOT A WARM BLANKET FOR PT. CALL LIGHT AND TABLES IN REACH. PT BRUSHING OWN HAIR. NO OTHER REQUESTS AT THIS TIME.
--- NOTE | 2022-03-29 12:20 | NUR ---
PT UP TO BSC ABLE TO MOVE HER BOWELS. RETURNS TO THE CHAIR FOR NOON MEAL. CALL LIGHT IN LAP
--- NOTE | 2022-03-29 13:30 | NUR ---
IN ROOM TO ANSWER CALL LIGHT. PT SITTING IN CHAIR. PT REQUESTING TO USE COMMODE. YANNA VILLARREAL IN ROOM TO ASSIST. PT STANDS USING FWW AND SOME ASSISTANCE AND PIVOTS TO COMMODE. PT REQUESTING SOME TIME. PT VERBALIZES UNDERSTANDING TO USE CALL LIGHT WHEN FINISHED AND TO NOT GET UP WITHOUT HELP. CALL LIGHT GIVEN TO PT.
--- NOTE | 2022-03-29 13:40 | NUR ---
IN TO ANSWER CALL LIGHT. PT READY TO GET OFF COMMODE AND BACK INTO CHAIR. YANNA VILLARREAL IN TO ASSIST. PT STANDS AND PIVOTS FROM COMMODE TO CHAIR WITH FWW AND SOME ASSISTANCE. NO OTHER NEEDS FROM THIS RN. CALL LIGHT IN REACH.
--- NOTE | 2022-03-29 14:51 | NUR ---
PT UP IN THE CHAIR VISITOR PRESENT
--- NOTE | 2022-03-29 14:54 | NUR ---
PT SATS MID 90'S 02 REDUCED TO 1LPM, REMAINS MID 90'S.
--- NOTE | 2022-03-29 16:00 | NUR ---
Faxed chart to Jenifer at [facility]. They currently have beds open and will revie the chart tomorrow.
--- NOTE | 2022-03-29 17:02 | NUR ---
PT HAS REMAINED UP IN THE CHAIR THIS SHIFT, USES CALL LIGHT APPROPRIATELY. VOIDING WITHOUT DIFFICUTLY AFTER JUSTICE DC'D. CONTINUES ON 1 L 02 SATS MID TO LOW 90'S
--- NOTE | 2022-03-29 19:39 | NUR ---
REPORT RECEIVED FROM DAY SHIFT RN. PT SITTING IN RECLINER VISITING WITH GUEST. DENIES NEEDS. CALL LIGHT IN REACH.
--- NOTE | 2022-03-29 19:50 | NUR ---
2 PA. PATIENT USED THE BEDSIDE COMMODE FROM CHAIR THEN TO BED. PATIENT DID ORAL CARE AND WASHED HANDS AND FACE. V/S AND I&O'S TAKEN AND CHARTED. CALL LIGHT AND BEDSIDE TABLE WITHIN REACH.
--- NOTE | 2022-03-29 20:59 | NUR ---
EVENING ASSESSMENT COMPLETE. SCHEDULED MEDS ADMIN PER EMAR. PT DENIES PAIN OR NAUSEA. PRN INHALER ADMIN PER PT REQUEST. 1L/NC IN PLACE. SCATTERED WHEEZES HEARD. BLE EDEMA NOTED, IMPROVED FROM LAST NOC. BLE ELEVATED WITH HEEL PROTECTORS IN PLACE. PT REPOSITIONED IN BED WITH PILLOWS. TELE #[address] HR IRREGULAR. PT DENIES QUESTIONS OR CONCERNS. CALL LIGHT IN REACH.
--- NOTE | 2022-03-29 22:56 | NUR ---
PT REPORTS ABD PAIN/CRAMPING. NIO PLACED FOR PRN MAALOX. PT REPORTS SHE TAKES THAT AT HOME ON OCCASION AND FINDS IT HELPFUL. ADMIN PER EMAR. WARM BLANKET PROVIDED. NO FURTHER NEEDS.
--- NOTE | 2022-03-30 00:21 | NUR ---
PT RESTING IN BED WITH EYES CLOSED. RESPIRATIONS EVEN. CALL LIGHT IN REACH.
--- NOTE | 2022-03-30 02:54 | NUR ---
PATIENT GOT UP TO THE BEDSIDE COMMODE. PATIENT UNABLE TO VOID. PATIENT IS BACK IN BED. PRIMARY RN WAS WITH PATIENT.
--- NOTE | 2022-03-30 04:20 | NUR ---
PT RESTING IN BED WITH EYES CLOSED. RESPIRATIONS EVEN. CALL LIGHT IN REACH.
--- NOTE | 2022-03-30 06:40 | NUR ---
2 PA TO BEDSIDE COMMODE AND BACK TO BED. PATIENT STILL NOT ABLE TO URINATE. BLADDER SCANNED SHOWS 640ML. PRIMARY RN NOTIFIED.
--- NOTE | 2022-03-30 06:50 | NUR ---
DR. CALI NOTIFIED REGARDING BLADDER SCAN 640 ML. NO NEW ORDERS AT THIS TIME.
--- NOTE | 2022-03-30 07:11 | NUR ---
RECIEVED SHIFT REPORT. PT RESTING IN BED AT THIS TIME, EYES CLOSED. CALL LIGHT WITHIN REACH. RR EVEN AND UNLABORED.
--- NOTE | 2022-03-30 08:11 | NUR ---
SPOKE WITH DR CALI REGARDING PT HEART RATE IN LOW 50'S AND ORDER FOR DIGOXIN THIS AM. DR CALI STATED PT TO STILL RECEIVE DIGOXIN.
--- NOTE | 2022-03-30 09:40 | NUR ---
IN PT ROOM. PT WALKED TO CHAIR 1PA, WITH A FWW WITHOUT DIFFICULTY. CALL LIGHT WITHIN REACH.
--- NOTE | 2022-03-30 10:00 | NUR ---
MORNING ASSESSMENT COMPLETE. PT IS UP IN CHAIR. DENIES ANY PAIN AT THIS TIME. LUNG SOUNDS CLEAR BILAT IN UPPER LOBES, DIMINISHED BILAT IN LOWER LOBES. HR 72 BPM, AND IRREGULAR. +2 PITTING EDEMA NOTED BILAT IN LOWER EXTREMITIES. CLIFFORD AREA CLEANED AND DESITIN APPLIED. ALLEVYN DRESSING ON COCCYX CHANGED.
--- NOTE | 2022-03-30 11:04 | NUR ---
PT WALKED TO THE BATHROOM 1PA WITH A FWW WITHOUT DIFFICULTY. STUDENT NURSING A BED BATH.
--- NOTE | 2022-03-30 11:55 | NUR ---
Texted Jenifer at [facility] and asked if they can accept this pt. No reply at this time.
--- NOTE | 2022-03-30 12:31 | NUR ---
Received reply from Jenifer. She requests more notes in 1-2 days to check for I/O requested by their DNS. Let her know pt will need wound assessment and Dr. Keene is speaking with Dr. Alcocer. Last dc they had said pt could stop chemo treatments. NOw they are concerned chemo is causing pt further problems at this time. I send updated notes afternoon.
--- NOTE | 2022-03-30 12:42 | NUR ---
PT IN CHAIR AT THIS TIME EATING LUNCH. CALL LIGHT WITHIN REACH. DENIES FURTHER NEEDS.
--- NOTE | 2022-03-30 13:32 | NUR ---
PT IN CHAIR AT THIS TIME. CALL LIGHT WITHIN REACH.
--- NOTE | 2022-03-30 14:20 | NUR ---
PT RESTING IN BED. CALL LIGHT WITHIN REACH.
--- NOTE | 2022-03-30 14:30 | NUR ---
NOtified by zenon Resendiz RN. Pt is stating she is leaving and wants her pts rights letter. Discussed if pt is capable of walking at this time. If she insists on leaving to let her go, I don't think she can walk. Then received a text from pts friend and CHW. Pt is having difficult time and wanting to leave. Pt is unable to walk and friends are refusing to take her home. Let her know I have sent the chart to [facility] and I am looking for placement. [facility] no longer has beds. She wants to know what she can do and I let her know to call the POA.
--- NOTE | 2022-03-30 15:10 | NUR ---
Spoke with pts Emeka LOVELL, in the [place]. He is visiting with Dr. Keene and she is encouraging to see guardianship. SLUMS test was completed by OT and pt's score was 10/30. She remains very confused and believes she is here for a head injury. YAZEdward plans on contacting a daytime babysitter tomorrow to proceed. I checked with wc why pt doesn't have a patient rights form. She check with admitting, pt would not sign, so forms were not given. LILIYA signed admission forms. I gave Bernice her Patient Rights letter. She again is stating she wouldn't sign as she is not signing away her rights. Let her know this is just an aknowledgement only, she is not giving up any rights. Pt repeatedly stating she cannot sign any papers as she has a head injury. Let her know Emeka is here and signed for her. Emeka in room visiting with pt.
--- NOTE | 2022-03-30 15:30 | NUR ---
PT LAYING IN BED. FAMILY AT BEDSIDE. CALL LIGHT WITHIN REACH.
--- NOTE | 2022-03-30 16:30 | NUR ---
PT LAYING IN BED. FAMILY AT BEDSIDE. PT REMAINS ON 1L NS WITH SP02 93%-96%. COURSE CRACKLES HEARD BILAT BASES AND LEFT UPPER LOBE. BILAT LE REMAIN 3+ PITTING EDEMA. PT DENIES PAIN AT THIS TIME. CALL LIGHT WITHIN REACH.
--- NOTE | 2022-03-30 16:35 | NUR ---
PT LAYING IN BED WITH FAMILY AT BEDSIDE. CALL LIGHT WITHIN REACH. DENIES FURTHER NEEDS AT THIS TIME.
--- NOTE | 2022-03-30 17:10 | NUR ---
PT TRANSFERRED FROM BED TO CHAIR WITHOUT DIFFICULTY. DENIES PAIN AND NEEDS AT THIS TIME. WARM BLANKET PROVIDED. CALL LIGHT WITHIN REACH.
--- NOTE | 2022-03-30 18:37 | NUR ---
pt in recliner. call light within reach. denies further needs at this time.
--- NOTE | 2022-03-30 18:40 | NUR ---
IN ROOM TO TAKE PT VITALS. UPON FINSIHING PT VITALS PT WAS VERY DISTRAUGHT. PT STATED "IF I CHOOSE TO DO THE RIGHT THING AND END IT ALL WILL IT BE BETTER FOR EVERYONE?". I LET PT KNOW THAT WHATEVER HAPPENS WE MARYBETH MAKE SURE THAT SHE IS SAFE AND THAT IS THE BEST DECISION FOR HER. PT CONTINUED ON TO TELL ME HER HX AND STRUGGLE W CANCER AND THAT SHE WANTS DR. YOUSSEF TO UNDERSTAND THAT SHE DOES NOT WANT TO GIVE UP. PT CONTINUES ON TO REPEAT SAME CONVERSATION. RN NOTIFIED.
--- NOTE | 2022-03-30 19:34 | NUR ---
REPORT RECEIVED FROM DAY SHIFT RN. PT SITTING IN RECLINER WITH EYES CLOSED. LEGS ELEVATED. RESPIRATIONS EVEN. CALL LIGHT IN REACH.
--- NOTE | 2022-03-30 22:30 | NUR ---
EVENING ASSESSMENT COMPLETE. SCHEDULED MEDS ADMIN PER EMAR. PT UP TO BSC WITH FWW AND 2PA TO VOID 600 ML CONCENTRATED URINE. HR UP TO 170'S WITH ACTIVITY. STAFF ASSIST WITH CLIFFORD CARE. BACK TO BED, LAURA WELL. REPOSITIONED WITH PILLOWS. WARM BLANKET PROVIDED. PT DENIES PAIN OR NAUSEA. DENIES SOB. 1L/NC IN PLACE. HOUSE WIRER HELPER ASSIST WITH PM CARES. NO FURTHER NEEDS AT THIS TIME. CALL LIGHT IN REACH.
--- NOTE | 2022-03-31 00:30 | NUR ---
THIS RN RECEIVED SHIFT REPORT FROM RONNELL BETTS AND I WILL BE ASSUMING CARE FOR THE PATIENT AT THIS TIME. PATIENT RESTING IN LOW FOWLERS POSITION, EYES CLOSED, RESPIRATIONS ARE REGULAR AND EVEN, AND CALL LIGHT IS IN REACH. PATIENT HAS NO NURSE CARE NEEDS AT THIS TIME.
--- NOTE | 2022-03-31 02:08 | NUR ---
THIS RN DOING ROUNDS AND PATIENT CONTINUES TO REST QUIETLY IN SEMI-FOWLERS POSITION, EYES CLOSED, RESPIRATIONS ARE REGULAR AND EVEN, AND CALL LIGHT IS IN REACH. PATIENT CAN BE SEEN FROM THE NURSES STATION DESK. PATIENT HAS NO NURSE CARE NEEDS AT THIS TIME.
--- NOTE | 2022-03-31 04:11 | NUR ---
THIS RN DOING ROUNDS. PATIENT RESTING TURNED TO HER RIGHT IN LOW FOWLERS POSITION IN BED, EYES CLOSED, RESPIRATIONS ARE REGULAR AND EVEN, AND CALL LIGHT IS IN REACH. PATIENT HAS NO NOTED NURSE CARE NEEDS AT THIS TIME.
--- NOTE | 2022-03-31 06:01 | NUR ---
THIS RN IN TO ASSIST YANNA BERNABE IN GETTING PATIENT TO THE BEDSIDE COMMODE TO VOID THEN BACK TO BED AFTER A STANDING WEIGHT TAKEN AND RECORDED. DRY ATTENDS IN PLACE. VOIDING IS QUANTITY SUFFICIENT. AM ASEESSMENT COMPLETE. BED ALARM IS ON AND CALL LIGHT IS IN REACH. PATIENT HAS NO OTHER NURSE CARE NEEDS AT THIS TIME.
--- NOTE | 2022-03-31 07:20 | NUR ---
RECIEVED SHIFT REPORT. PT UP IN CHAIR. BUTT MAKER IN ROOM. CALL LIGHT WITHIN REACH. DENIES FUTHER NEEDS.
--- NOTE | 2022-03-31 09:30 | NUR ---
PT IN CHAIR EATING BREAKFAST. PT APPEARS TO BE LESS ANXIOUS TODAY WITH HER PLAN OF CARE. PT DENIES PAIN AT THIS TIME. COURSE CRACKLES HEARD BILAT IN ALL LOBES. REMAINS ON 1L NC, SPO2 96%. BILAT LEGS AND FEET 3+ EDEMA. VISITORS ARRIVED AND ARE AT BEDSIDE. CALL LIGHT WITHIN REACH.
--- NOTE | 2022-03-31 11:24 | NUR ---
PT IN RECLINER. VISITERS AT BEDSIDE. CALL LIGHT WITHIN REACH.
--- NOTE | 2022-03-31 11:54 | NUR ---
INTO PATIENT ROOM, PATIENT SITTING UP IN CHAIR WATCHING TV. PATIENT STATES SHE IS DOING WELL. PATIENT STATES SHE HAS NO NEEDS AT THIS TIME. ASKED PATIENT IF NOELLE WILL BE RETURNING TO VISIT HER TODAY, SHE STATES YES. ADVISED CASE MANAGEMENT WILL COME BACK TO VISIT WHEN NOELLE IS AVAILABLE. PATIENT REQUESTING GLASS OF ICE FOR HER SODA, ICE GIVEN. DARON REYNAGA IN ROOM.
--- NOTE | 2022-03-31 12:17 | NUR ---
PT IN RECLINER FOR LUNCH. CALL LIGHT WITHIN REACH. DENIES FURTHER NEEDS
--- NOTE | 2022-03-31 13:50 | NUR ---
PT IN RECLINER RESTING. CALL LIGHT WITHIN REACH.
--- NOTE | 2022-03-31 15:30 | NUR ---
PT ON BEDSIDE COMMODE. PT COMPLAINING SHE CANT BREATH. SPO2 CHECKED 97% ON 1L NC. ONCE IN CHAIR PT TOOK A DEEP BREATHS AND FELT BETTER. CALL LIGHT WITHIN REACH.
--- NOTE | 2022-03-31 16:13 | NUR ---
Faxed updated chart with progress notes, OT notes, and med list to Jenifer at [facility].
--- NOTE | 2022-03-31 16:55 | NUR ---
APPLIED ADAPTIC TO OPEN BLISTER ON TOP LEFT FOOT, TOP RIGHT FOOT/TOE. WRAPPED IN GUAZE AND COBAND.
--- NOTE | 2022-03-31 17:30 | NUR ---
PT IN CHAIR FROM USING BEDSIDE COMMODE. CALL LIGHT WITHIN REACH.
--- NOTE | 2022-03-31 19:10 | NUR ---
RECEIVED REPORT FROM YI REYNAGA. PT RESTING IN BED W/VISITORS. CALL LIGHT WITHIN REACH, BED ALARM ON, NO FURTHER NEEDS AT THIS TIME.
--- NOTE | 2022-03-31 21:00 | NUR ---
IN ROOM FOR DRIER TAKE OFF TENDER, ASSESSMENT, AND TO ASSIST W/MOVING PT FROM CHAIR TO BED. PT MADE AN EFFORT TO VOID ON BEDSIDE COMMODE BUT WAS UNABLE TO. PT GAIT IS WEAK AND UNSTEADY W/FWW AND 2PA. DRESSINGS ARE C/D/I ON COCCYX AND FEET. DESITIN PLACED IN CLIFFORD AREA. HR IS IRREGULAR AND PT IS NOW ON RA W/SATS LOW 90'S. A&O TO ALL BUT TIME/DATE. LUNG SOUNDS ARE DIMINISHED/COARSE W/INSPIRATORY STRIDOR. PT HAS OCCASIONAL NONPRODUCTIVE COUGH. 3+ EDEMA PRESENT ON BLE. CMS INTACT X2, BLE PT STATES NEUROPATHY AND WEAKNESS (CHRONIC). PULSES PRESENT THROUGHOUT AND PT REMAINS IN AFIB W/IRREGULAR RHYTHM. PILLOW PLACED UNDER PT KNEES. CALL LIGHT WITHIN REACH, BED ALARM ON, NO FURTHER NEEDS AT THIS TIME.
--- NOTE | 2022-04-01 00:12 | NUR ---
PT RESTING IN BED W/EYES CLOSED. BREATHING IS EVEN AND UNLABORED. NO SIGNS OF DISTESS. CALL LIGHT WITHIN REACH, BED ALARM ON.
--- NOTE | 2022-04-01 01:08 | NUR ---
PERFORMED PULSE OX CHECK ON PT DUE TO RA BY MADELEINE HURTADO. PT PULSE OX 79. APPLIED 6 L NC. O2 NOW AT 1 L NC AND WILL LEAVE PULSE OX ON TO MONITOR. NOTIFIED RT MADELEINE. PT BREATHING EVEN AND UNLABORED, NO SIGNS OF DISTRESS. CALL LIGHT WITHIN REACH.
--- NOTE | 2022-04-01 01:30 | NUR ---
IN ROOM FOR POSITION CHANGE AND TO REAPPLY NYSTATIN POWDER. POWDER APPLIED PER WOUND CARE ORDERS FROM LABIA TO RECTUM AFTER DRY FROM DABBING CLEAN W/BARRIER WIPES. PT TOLERATED WELL. BLADDER SCANNED PT W/AMOUNT OF 526 ML. 2 PA W/FWW TO BEDSIDE COMMODE. RUNNING WATER, HANDS IN WARM WATER, AMBULATION IN ROOM USED BUT UNSUCCESSFUL IN CAUSING PT TO VOID. PT DRINKING MORE FLUIDS AND PROVIDED WARM TEA. PT NOW BACK IN BED W/WARM BLANKETS AND WATCHING TV. CALL LIGHT WITHIN REACH, NO FURTHER NEEDS AT THIS TIME.
--- NOTE | 2022-04-01 04:10 | NUR ---
IN TO FLOAT PT AT HIPS WITH RN, PT UP TO THE BSC AFTER BLADDER SCAN, VOIDED BACK TO BED, NEW ATTENDS IN PLACE,
--- NOTE | 2022-04-01 04:20 | NUR ---
DISTAL END OF ALLEVYN TO COCCYX LOOSE, REINFORCED WITH SMALL GENTAL BORDER ALLLEVYN. ABD PAD ALSO TUCKED LOOSELY TO BUTTOCKS CREASE BELOW ALLEVYN D/T MOISTURE. WOUND CONSULT PLACED BY THIS RN. BILATERAL HIPS FLOATED AFTER pt VOIDED 525MLS OF YELLOW URINE, SOMEWHAT FOUL SMELLING. pt BLADDERSCANNED PRIOR TO VOID FOR 626MLS. DAILY WEIGHT ALSO DONE. CALL LIGHT IN REACH.
--- NOTE | 2022-04-01 05:46 | NUR ---
NO ACUTE CHANGES FROM PREVIOUS ASSESSMENT. PT RESTING IN BED W/HIPS FLOATED AND PILLOW UNDER KNEES. PT REMAINS IN AFIB. +3 EDEMA IN BLE. PT REMAINS WEAK AND SLIGHTLY CONFUSED, ORIENTED TO ALL BUT DATE/TIME. PT ON 1 L NC W/NO CHANGE IN LUNG SOUNDS. PT REPORTS PAIN 1/10, DECLINES NEED FOR ANY PRN PAIN MEDS. PT REPORTS NO NAUSEA, DIZZINESS. CALL LIGHT WITHIN REACH, BED ALARM ON, NO FURTHER NEEDS AT THIS TIME.
--- NOTE | 2022-04-01 07:11 | NUR ---
UNEVENTFUL NIGHT FOR PT. PT SLEPT MAJORITY OF THE NIGHT. NO PRN MEDS GIVEN. NO PAIN/NAUSEA REPORTED BY PT. 2 PA W/FWW TO BEDSIDE COMMODE. DRESSING REINFORCED W/ADDITIONAL ALLEVIN ON COCCYX DUE TO UPLIFTING OF DRESSING. ABD PAD PLACED BETWEEN CHEEKS AND WOUND CONSULT ORDERED . LUNGS ARE DIMINISHED, COARSE, AND INSP. WHEEZES PRESENT. PT ON RA AT BEGINNING OF NIGHT, SWITCHED TO 1 L NC DUE TO RANDOM PULSE OX OF 79%. (NOW STABLE IN 90'S). PT IS ALERT AND ORIENTED TO ALL BUT TIME/DATE AND IS CONFUSED. +3 PITTING EDEMA PRESENT ON BLE. PULSES STRONG RADIALLY, DIMINISHED PEDAL D/T DRESSING/EDEMA. VSS. BLADDER SCANNED PT, 617 ML. PT. PT VOIDED ON BC. 2 G SODIUM DIET W/MINIMAL APPETITE (ENSURES). PT INFO FAXED TO [facility] FOR DC.
--- NOTE | 2022-04-01 08:06 | NUR ---
PT UP IN CHAIR FOR MEAL, AM CARE COMPLETED. PT HAS NO OTHER NEEDS AT THIS TIME. CALL LIGHT WITHIN REACH.
--- NOTE | 2022-04-01 08:17 | NUR ---
STUDENT NURSE IN ROOM WITH PT FOR SHIFT CHANGE WITH CENTRAL OFFICE FRAME WIRER NURSE AND PRESS SHOP SUPERVISOR. SN AND CUT ORDER HAND BACK INTO ROOM WITH PT TO TRANSFER FROM BED TO CHAIR FOR BREAKFAST. PT PROVIDED MATERIALS FOR ORAL CARE AND STATES NEEDS AT THIS TIME HAVE BEEN MET. CALL LIGHT IS WITHIN REACH.
--- NOTE | 2022-04-01 09:40 | NUR ---
PT IN BED AFTER MEAL. VITALS DONE BY NNBHARAT. I/O'S DOCUMENTED, PT HAS NO OTHER NEEDS AT THIS TIME. CALL LIGHT WITHIN REACH.
--- NOTE | 2022-04-01 10:16 | NUR ---
SN AND PAPER BAGS SEWING MACHINE OPERATOR IN ROOM WITH PT. PT TRANSFERED TO CHAIR WITH ASSIST FROM THIS SN AND A DIRECTOR OF RETAIL MERCHANDISING. BREAKFAST SERVED TO PT. SN AND PAPER BAGS SEWING MACHINE OPERATOR BEGAN MORNING MEDICATIONS WITH PT. VITAL SIGNS TAKEN IN ANTICIPATION OF ADMINISTRATION OF DIGOXIN. BP TAKEN AT 84/40 BY MACHINE AND REPEATED ON OTHER ARM WITH SIMILAR READING. MANUAL BLOOD PRESSURE TAKEN AT 78/44 TO CONFIRM VERIFIED BY CHARLES BENITEZ RN. OXYGEN SATURATION AT 95% ON 1L NC AND PULSE AT 81 BPM AT THIS TIME. WHEN ASKED HOW PT IS FEELING, SHE STATES SHE IS "STARTING TO FEEL A LITTLE DIZZY" BUT THAT "IT IS NOT UNUSUAL FOR HER BLOOD PRESSURE TO BE VERY LOW IN THE MORNING." PROVIDER NOTIFIED AND CONSULTED FOR ADMINISTRATION OF DIGOXIN. PROVIDER DECIDED PT SHOULD STILL RECIEVE DIGOXIN THIS MORNING. RESPIRATORY THERAPY IN WITH PT PROVIDING ASTHMA TREATMENT DURING THE TIME SN AND PAPER BAGS SEWING MACHINE OPERATOR NOTIFYING PROVIDER OF PT STATUS . SN AND PAPER BAGS SEWING MACHINE OPERATOR ADMINISTERED DIGOXIN PER PROVIDER INSTRUCTION. PHYSICAL THERAPY IN ROOM TO WORK WITH PT. SN NOTIFIES PHYSICAL THERAPIST OF PATIENTS CURRENT STATUS OF PATIENTS BLOOD PRESSURE. PT LEFT IN CHAIR WITH PHYSICAL THERAPY AND PHYSICAL THERAPY INSTRUCTED WILL LET SN KNOW WHEN SHE IS DONE SO THAT PT CAN BE TRANSFERED BACK TO THE BED. PT TOLD TO NOTIFY IF SHE NEEDS ANYTHING AND CALL LIGHT IS WITHIN REACH.
--- NOTE | 2022-04-01 11:26 | NUR ---
SN IN ROOM WITH PATIENT ALONG WITH RN FOR WOUND CONSULT. SN ASSISTED RN IN CLEANING WOUND. PT APPEARED TENSE AND IN PAIN WOUND FROM COCCYX TO LABIA CLEANED WITH PHOTOPLEX BOTANICAL BARRIER WIPES WITH DIMETHICONE 3.6% TAKEN FROM WARMER. PT GRIMACED AND SQUEEZED EYES SHUT. PICTURES OF WOUNDS TAKEN. PT GIVEN A BREAK TO WAIT FOR ORDERS FROM PROVIDER FOR WOUND CARE MATERIALS. PT IN BED IN SEMI FOWLERS POSITION WITH CALL LIGHT WITHIN REACH. PT STATES NO NEEDS AT THIS TIME.
--- NOTE | 2022-04-01 11:56 | NUR ---
SPOKE WITH RONNELL RANGEL, THIS MORNING. SHE WILL ADD SUPPLEMENTS TO COME WITH MEALS TO THE DIET ORDER FOR SUPPLEMENTAL NUTRITION. DIETARY WILL CONTINUE TO WATCH THE SODIUM CONTENT OF MEALS NOW THAT ENSURE WILL BE ADDED TO TRAYS.
--- NOTE | 2022-04-01 12:46 | NUR ---
WOUND NURSE CONSULT: WOUND CONSULT REQUESTED D/T WOUNDS ON PATIENTS CLIFFORD-AREA. PT HAS MULTIPLE SATLITE LEASONS FROM LABIA TO COCCYX. WOUNDS ARE OPEN AND HAVE A MADERATE AMOUNT OF PURULENT DRAINAGE PRESENT. DR CALI CALLED TO BEDSIDE TO SEE WOUNDS. WOUNDS HEALING HAS WORSENED SINCE ADMISSION. IT APPEARS TO BE A YEAST INFECTION RELATED TO CHEMO USE. RECOMMEND ANTI-FUNGAL. DISCUSSED WITH DR CALI AND ORDERS WERE PLACED. WOUND CLEANSED WITH SOAP AND WATER. DRIED WELL AND COVERED IN NYSTATIN POWDER. AREA TO BE KEPT DRY AND NYSTATIN APPLIED TWICE A DAY AND PRN. 3 POPPED BULLAE PRESENT ON COCCYX AREA. WOUND BED IS GRANULATING AND IS IMPROVING FOR ADMISSION. ALLEVYNS APPLIED. SEE WOUND DRESSING ORDERS.
--- NOTE | 2022-04-01 14:26 | NUR ---
PATIENT IN BED AFTER MEAL. VITALS AND I/O'S COMPLETED. NURSE NOTIFIED. PT HAS NO OTHER NEEDS AT THIS TIME CALL LIGHT WITHIN REACH.
--- NOTE | 2022-04-01 16:05 | NUR ---
REPORT RECIEVED, CARE RESUMED. ASSESSMENT DONE- REVIEW FOR DETAILS. PT REQUESTING TO HAVE A SHOWER MULTIPLE TIMES. PT FAMILY HERE FOR VISIT. PT BOOSTED AND SAT UP IN BED. PLAN TO CONSIDER SHOWER AFTER THEY LEAVE, PT AGREEABLE TO PLAN. RESP EVEN AND UNLABORED. CALL LIGHT AND PERSONAL ITEMS IN REACH.
--- NOTE | 2022-04-01 18:29 | NUR ---
PATIENT UP IN CHAIR FINISHING MEAL. VITALS AND I/O'S COMPLETED. PT HAS NO OTHER NEEDS AT THIS TIME. CALL LIGHT WITHIN REACH.
--- NOTE | 2022-04-01 19:15 | NUR ---
RECEIVED REPORT FROM JEWEL REYNAGA. PT IS CURRENTLY ON BEDSIDE COMMODE W/ROTARY BAR OPERATOR IN ROOM.
--- NOTE | 2022-04-01 21:00 | NUR ---
IN ROOM FOR ELECTRONICS DEPARTMENT MANAGER, ASSESSMENT, AND ASSISTING PT TO BEDSIDE COMMODE. PT REPORTS NO PAIN OR NAUSEA. PT TO BEDSIDE COMMODE W/2PA & FWW, GAIT IS UNSTEADY AND WEAK. ON BEDSIDE COMMODE PT BRUSHED TEETH, HAIR, AND CLEANED FACE. DRESSING ON COCCYX IN INTACT AND CLEAN. SCANT DRAINAGE FROM IN BETWEEN R/L REAR CHEEKS, DABBED W/BARRIER WIPES. BILAT FEET DRESSING C/D/I. BLE ARE 3+ PITTING EDEMA BUT PULSES FELT POST TIBIALIS, AND STRONG RADIAL. LUNGS REMAIN COARSE, DIMINISHED, AND INSPIRATORY WHEEZES HEARD THROUGHOUT, PT ON 1 L NC W/O2 SATS LOW 90'S. HEART RHYTHM IRREGULAR (CHRONIC AFIB). PT A&O TO ALL BUT DATE/TIME, W/CONFUSION AND FREQUENT FORGETFULLNESS. PILLOW FLOATED UNDER LEFT SIDE. CALL LIGHT WITHIN REACH, NO FURTHER NEEDS AT THIS TIME.
--- NOTE | 2022-04-02 02:18 | NUR ---
DR CALI MADE AWARE pt HAD AN UNMEASURED VOID AT BEGINNING OF SHIFT, pt RECENTLY BLADDER SCANNED BY PRIMARY RONNELL SALDIVAR-RESULT IN 490'S-525. pt APPEARS TO WANT A JUSTICE AND MAKES STATEMENTS SUCH "WELL IF I HAVE A JUSTICE THEN IT WILL HELP MY SKIN". NO NEW ORDERES RECEIVED BY MD OTHER THAN JUST TO CONTINUE TO MONITOR. PRIMARY RONNELL SALDIVAR AWARE AND UPDATED.
--- NOTE | 2022-04-02 03:39 | NUR ---
ANSWERED PT CALL LIGHT STATING URGE TO VOID. ASSISTED PT TO BEDSIDE COMMODE W/AMIRAH OPERATIONAL REVIEW SERGEANT. PT VOIDED 450 ML AND ODOROUS SMELL. PT DABBED CLEAN W/ BARRIER WIPES. NEW DEPENDS PLACED. PICTURE TAKEN OF 2" RUG-BURN LIKE ADAM ON LEFT FRONT HIP. CLEANED W/WOUND CLEANSER AND ALLEYVN PLACED TO COVER. PHOTO ADDED TO CHART. KNEES AND BOTH HIPS ELEVATED W/PILLOWS. PT ON 1L NC W/O2 SATS MID 90'S. NO ACUTE CHANGES TO PREVIOUS ASSESSMENT. COBAN REPOSITIONED OVER FOOT WOUNDS AND NEW SOCKS APPLIED. PT REMAINS ORIENTED TO ALL BUT DATE/TIME AND IS CONFUSED/ANXIOUS/FORGETFUL. PT STATES NO CURRENT PAIN OR NAUSEA. BLE EDEMA REMAINS +3. CALL LIGHT WITHIN REACH, NO FURTHER NEEDS AT THIS TIME.
--- NOTE | 2022-04-02 06:07 | NUR ---
IN PT ROOM FOR VS. PT RESTING IN BED, PILLOW BELOW KNEES FOR ELEVATION OF LEGS AND PILLOW REMOVED FROM LEFT SIDE FOR TURNING. CALL LIGHT WITHIN REACH, BED ALARM ON, NO FURTHER NEEDS AT THIS TIME.
--- NOTE | 2022-04-02 07:20 | NUR ---
LET DR. CALI KNOW OF MOST RECENT H&H COMPARED TO LAST SET. MD ALSO AWARE OF AM BP 92/57 W/MAP OF 63. PT ASYMPTOMATIC AND RESTING IN BED. MD REQUEST WE RECHECK. DAILY WEIGHT ALSO NEEDED. WILL RECHECK AFTER DAILY WEIGHT. DAY SHIFT NURSE AWARE AND TO RECHECK BP AFTER DAILY WEIGHT.
--- NOTE | 2022-04-02 08:06 | NUR ---
REPORT RECEIVED, CARE RESUMED. PT WEIGHED AT 72.1 KG, UP FROM 70.3 YESTERDAY. BP ON RETURNING TO BED RIGHT 80/43(53) HR 111, REPEAT ON LEFT 76/44(52) HR 86, CHANGED CUFF TO ONE THAT FITS BETTER, REPEAT 94/43(55) HR 98. PT DENIES HAVING HAD DIZZINESS WITH RISING. O2 92% ON 1 L PER NC, RR 18. RESP THERAPY IN TO GIVE NEB TREATMENT.
--- NOTE | 2022-04-02 08:49 | NUR ---
ASSESSMENT DONE, MORNING MEDS GIVEN. DR CALI IN TO SEE PT. TORSEMIDE HELD PER MD FOR LOW BP AND IMPROVING EDEMA. PLAN TO ENCOURAGE PO FLUID INTAKE. PT ENDORSES FEELING MORE TIRED TODAY ADN WANTING TO REST. CURRENTLY SITTING UP EATING BREAKFAST, CALL LIGHT IN REACH.
--- NOTE | 2022-04-02 11:40 | NUR ---
New dressings applied to bilateral feet and coccyx per orders. Right foot: 3x2" open blister- red and weeping with intact, pink surrounding skin on top of foot. Dollar coin sized open area on right great toe. Intact blister on small toe. Left foot: 4x3 popped blister with skin flap partially covering wound on top of foot. Open area is red and weeping, surrounding skin pink and dry. additional intact blisters on smaller toes. [place] area: raw, pink skin with extensive excoriation throughout entire area. Open areas are dark red, small circular lesions which meld into eachother. cleaned with wound spray, dried and desenex powder applied per orders. Coccyx: dry, bright pink skin with brown. Three dollar-coin sized raw open areas. Two separate dressings required to cover sores. Pt tolerated cleaning and dressing changes well. RONNELL Adkins assisted.
--- NOTE | 2022-04-02 13:57 | NUR ---
PATIENT IN BED AFTER MEAL. VITALS AND I/O'S COMPLETED. ICE WATER GIVEN. PATIEN HAS NO OTHER NEEDS AT THIS TIME, CALL LIGHT IS WITHIN REACH.
--- NOTE | 2022-04-02 14:30 | NUR ---
URINE NOTED TO BE DARK YELLOW, CLOUDY AND FOUL SMELLING. PT UNABLE TO GIVE CLEAR ANSWER WHEN ASKED IF HAVING PAIN WITH URINATION. DR CALI NOTIFIED AND VERBAL ORDER RECIVED FOR UA/CULTURE. SAMPLE COLLECTED AND SUBMITTED TO LAB.
--- NOTE | 2022-04-02 14:44 | NUR ---
ASSESSMENT DONE, MEDICATION GIVEN. PT SITTING UP IN BED DOING MAKEUP. IV LR INFUSING AT 75ML/HR. RR 16, O2 SAT 94% ON 1L PER NC. RESP EVEN AND UNLABORED. LE EDEMA 3+, INCREASED FROM THIS MORNING, LUNG SOUNDS IMPROVED, CONTINUE TO BE COARSE/EXP WHEEZE IN RUL. BP 103/49(63) HR 98 TEMP 97.7. CALL LIGHT IN REACH.
--- NOTE | 2022-04-02 17:20 | NUR ---
RIB CLOTH KNITTER WAS ATTEMPTING TO HELP PT TO CHAIR FOR DINNER. AFTER DANGLING AT BEDSIDE, WHEN PT ATTEMPTED TO STAND UP SHE BECAME DIZZY AND IMMDIATELY NEEDED TO SIT. PT REPORTED TO SLUMP TO SIDE, NEARLY FLACCID AND FEELING LIKE SHE WAS ABOUT TO PASS OUT. RN SHERRY CAME IN AND HELPED GET PT BACK TO BED SUPINE, IN TRENDELENBERG AND O2 INCREASED TO 5LPM. THIS RN TO ROOM AT THIS TIME. PT VITALS AFTER RETURNED TO BED: BP 95/50(60) HR 116 IRREGULAR, O2 SAT 99% ON 5L, RR 18. PT TIRED, SLOW TO RESPOND, STATES YEAR IS "[birth year]", ORIENTED TO SELF AND EVENT, WITH BASELINE LEVEL OF CONFUSION. NEURO EXAM OTHERWISE UNREMARKABLE, AT BASELINE. LE EDEMA INCREASED TO 3+ FROM 2+ EARLIER TODAY. LUNG SOUNDS COARSE, MOIST THROUGHOUT WITH INSP/EXP WHEEZE/RUB. WORSENED SINCE AFTERNOON ASSESSMENT. PT ENDORSES SOME SOB. O2 SAT ABLE TO MAINTAIN AT 97% ON 2L. DR LORENZO NOTIFIED, VERBAL ORDER TO STOP FLUIDS AND REMAIN IN BED RECEIVED. ALSO NOTIFIED OF NEW UA RESULT WITH POSITIVE NITRITE, WBC, BACTERIA. AWAITING FURTHER ADVISEMENT.
--- NOTE | 2022-04-02 18:51 | NUR ---
Blood pressure on routine check is 84/48(53) HR 111 O2 90% on 1L. Pt denies dizziness, states she is just tired and a little SOB. Dr Ford notified, awaiting orders.
--- NOTE | 2022-04-02 19:15 | NUR ---
RECEIVED REPORT FROM ANDREW REYNAGA. PT RESING IN BED W/EYES CLOSED. RESPIRATIONS ARE EVEN AND UNLABORED, NO SIGNS OF DISTRESS. NC ON 1L OF O2. CALL LIGHT WITHIN REACH, BED ALARM ON.
--- NOTE | 2022-04-02 21:00 | NUR ---
IN ROOM FOR PT ASSESSMENT, VS, CAD DESIGNER, I/O'S. PT RESTING IN BED W/1L O2 VIA NC. O2 SATS MID 90'S AND LOW BP OF 90 SYSTOLIC (MD AWARE). PT A&O TO ALL BUT DATE/TIME AND IS DROWSY/CONFUSED. PT LUNGS ARE DIMINISHED, COARSE, AND INSPIRATORY WHEEZES HEARD THROUGHOUT W/OCCASIONAL PRODUCTIVE COUGH. PT REMAINS WEAK IN ALL EXTREMETIES W/+3 EDEMA IN BLE. DRESSINGS ARE ALL C/D/I ON BILAT FEET, LEFT FRONT HIP, AND COCCYX. DESENEX POWDER APPLIED TO CLIFFORD AREA. HR REMAINS AFIB (CHRONIC), BUT PULSES FELT THROUGHOUT. PILLOWS PLACED TO FLOAT BOTH HIPS AND UNDER KNEES. BED ALARM ON, CALL LIGHT WITHIN REACH, WARM BLANKET PROVIDED, FRESH ICE WATER PROVIDED, NO FURTHER NEEDS AT THIS TIME.
--- NOTE | 2022-04-03 | NUR ---
ANSWERED PT CALL LIGHT, EXPRESSED NEED TO VOID. ASSISTED PT TO BEDSIDE COMMODE W/2 PA. PT PASSED GAS BUT NO URINARY OUTPUT. PT STARTED SLUMPING PROGRESSIVELY AND COULD NOT RAISE HEAD. 4PA TO ASSIST PT BACK TO BED. CLIFFORD AREA DABBED CLEAN WITH BARRIER WIPES AND DESINEX POWDER APPLIED. NEW CHUCKS PLACED UNDERNEATH. PT APPEARED EXTREMELY WEAK AND UNABLE TO KEEP EYES OPEN OR LIFT APPENDAGES. BP ON MONITOR WAS 78/44 W/MAP OF 51 AND MANUAL BP OF 76/38. HR REMAINS IN AFIB AND FLUCTUATES BETWEEN 40'S TO 130'S. PT WAS BLADDER SCANNED AND VOLUME OF 800 ML FOUND. WILL CALL MD TO UPDATE.
--- NOTE | 2022-04-03 00:36 | NUR ---
CALLED BJ DOTSON TO GIVE UPDATE ON PT STATUS W/EXTREME WEAKNESS, LOW BP, AND BLADDER SCAN VOLUME (SEE PREVIOUS NOTE). PER MD REQUEST, NURSE NOTIFY ORDER PLACED FOR STRICT BED REST, READ BACK TO MD FOR VERIFICATION. DR. LORENZO PLACING ADDITIONAL ORDERS AT THIS TIME.
--- NOTE | 2022-04-03 00:45 | NUR ---
scheduled po midodrine and iv abx both given as directed, see emar. primary rn kita and carly alvarez in room preparing to place campos. room tidied.
--- NOTE | 2022-04-03 01:10 | NUR ---
IN ROOM W/CHARLES REYNAGA AND ADALI REYNAGA FOR JUSTICE PLACEMENT. CLIFFORD AREA THOROUGHLY CLEANED WITH BARRIER WIPES AND WOUND CLEANSER. UROJET USED POST CLIFFORD CLEANING FOR PT COMFORT. PER PT, NO ALLERGIES TO IODINE OR LATEX. JUSTICE PLACED BY CHARLES REYNAGA, STERILITY MAINTAINED THROUGHOUT INTERVENTION, W/IMMEDIATE URINE OUTPUT. COLLECTING BAG PLACED AND DRAINING TO GRAVITY. PT TOLERATED WELL. O2 RAISED TO 4 L NC DURING INTERVENTION TO MAINTAIN O2 SAT >90% FOR HOB ELEVATION. O2 RETURNED TO 2L NC AFTER INTERVENTION W/O2 SATS MAINTAINING >90%. OUTPUT RECORDED OF 725 ML. WARM BLANKET PROVIDED, PILLOW UNDER KNEES & LFT HIP FOR FLOATING, ICE WATER PROVIDED, CALL LIGHT WITHIN REACH, BED ALARM ON. NO FURTHER NEEDS AT THIS TIME.
--- NOTE | 2022-04-03 02:30 | NUR ---
ANSWERED PT CALL LIGHT REGARDING BOTTOM PAIN. PILLOW PLACED UNDER BOTH SIDES TO ROTATE FLOATING HIPS. PT STATES PAIN 5/10, PRN TYLENOL GIVEN. PROVIDED PT W/LEMON-CHITIMACHA SODA AT REQUEST. HOB ELEVATED, CALL LIGHT WITHIN REACH, LEGS ELEVATED W/PILLOW, HEEL PROTECTORS IN PLACE, NO FURTHER NEEDS AT THIS TIME.
--- NOTE | 2022-04-03 04:02 | NUR ---
in room to collect vs, bp remains low result of 76/43, map of 51. hr wnl, pt asymptomatic, stating when entering room and asking how pt was feeling, pt states, "i feel so much better". pt denies sob, dizziness, lightheadedness. manual bp taken with similar results-73/40. discussed w/journeyman pipe fittercarly posada- no change in pt status since last conversation with dr damico. will continue to monitor. call light in reach, bed alarm on for safety.
--- NOTE | 2022-04-03 06:39 | NUR ---
EVENTFUL NIGHT FOR PT. ASSISTED PT W/AMBULATION W/2PA TO BEDSIDE COMMODE, PT SLUMPED (NO LOC) AND REQUIRED 4PA TO BED & D/T URINARY RETENTION BLADDER SCAN= 800 ML. BP IN 70'S SYSTOLIC, VERIFIED W/MANUAL BP. MD CALLED AND MADE AWARE. JUSTICE PLACED AND STERILE FIELD MAINTAINED, DRAINING TO GRAVITY. CLIFFORD CARE PERFORMED AND POWDER APPLIED PER WOUND CONSULT INSTRUCTIONS. ABX AND MIDODRINE STARTED. STRICT BED REST PER MD ORDERS. PILLOWS FLOATING HIPS (Q2 TURNS). PILLOW UNDER KNEES FOR +3 EDEMA. LUNGS REMAIN DIMINISHED, COARSE, W/INSPIRATORY CRACKLES THROUGHOUT. AM LABS PENDING.
--- NOTE | 2022-04-03 07:00 | NUR ---
DR LORENZO UPDATED ON pt's TRENDING BP, MOST RECENT TAKEN AT APPROX 4AM 76/43 (MAP OF 51), MANUAL OF SIMILAR RESULTS (SEE PREVIOUS NOTE). TELEPHONE ORDER READ BACK FOR 500MLS LR BOLUS TO INFUSE OVER 2 HOURS.
--- NOTE | 2022-04-03 07:40 | NUR ---
SEE CRITICAL LAB INTERVENTION REGARDING AM HEMOGLOBIN RESULT OF 4.6. MD LORENZO AWARE.
--- NOTE | 2022-04-03 08:15 | NUR ---
PT RESTING EYES CLOSED AT TIME OF SHIFT REPORT. AWAKE NOW STATES SHE IS "JUST SO TIRED" PT ENCOURAGED TO JUST REST FOR A TIME. CALL LIGHT AND NEEDED ITEMS IN REACH.
--- NOTE | 2022-04-03 09:26 | NUR ---
DR LORENZO IN TO SEE PT, FAMILY X2 PRESENT. PLAN GOING FORWARD DISCUSSED ALL QUESTIONS ANSWERED
--- NOTE | 2022-04-03 10:49 | NUR ---
PT RESTING IN BED [address] NEEDED ITEMS IN REACH. PT SNORING SOFTLY APPEARS RESTFUL AND RELAXED
--- NOTE | 2022-04-03 14:39 | NUR ---
PATIENT IN BED AFTER MEAL. VITALS AND I/O'S COMPLETED. JUSTICE DRAINED AND DOCUMENTED, AND HAS ALSO BEEN REPOSITIONED. PT HAS NO OTHER NEEDS AT THIS TIME. CALL LIGHT WITHIN REACH.
--- NOTE | 2022-04-03 15:27 | NUR ---
PT HAS HAD SEVERAL VISITORS IN AND OUT TODAY SHE DOES NOT ENGAGE MEANINGFULLY WITH THEM BUT DOES ANSWER Y/N QUESTIONS. PT IS DROWSY. RESTING EYES CLOSED AT THIS TIME.
--- NOTE | 2022-04-03 16:35 | NUR ---
PT HAS COFFEE GROUND APPEARING EMESIS. RESTING IN BED LESS RESPONSIVE THAN PREVIOUSLY IN SHIFT. ANSWERS YES/NO ONLY. RESTING EYES CLOSED MOSTLY.
--- NOTE | 2022-04-03 17:36 | NUR ---
SPOKE WITH DR LORENZO REGARDING PT DECREASED MENTAL STATUS AND SMALL COFFEE GROUND EMESIS BOUT. THEN SPOKE WITH NOELLE, PT'S LILIYA, REGARDING STATUS. HE STATED THAT HE AND THE OTHER PEOPLE INVOLVED FELT LIKE HOSPICE\COMFORT CARE WAS THE MOST APPROPRIATE ROUTE. DR LORENZO STATED HE WOULD PUT THE ORDERS IN SHORTLY.
--- NOTE | 2022-04-03 18:32 | NUR ---
1275 PT . IV AND VINH SYKES'D BODY PREPPED FOR TRANSPORT. BAKERY DECORATOR NOTIFIES DR LORENZO
--- NOTE | 2022-04-03 18:47 | NUR ---
DR LORENZO HERE TO PRONOUNCE.
--- NOTE | 2022-04-03 19:21 | NUR ---
LILIYA DRAKE HERE, BELONGING SENT WITH HIM. [facility].
--- NOTE | 2022-04-03 20:19 | NUR ---
[employer] HERE TO ADULT [employer]ISTRIES DIRECTOR PATIENT.
== END 2022-04-03 20:19 | DRG 682 ==
LOC: ED 11:37 → MS 11:38
PROVIDERS: ADMIT Family Medicine; ATTEND Internal Medicine
PROC: 30233N1 Transfusion of Nonautologous Red Blood Cells into Peripheral Vein, Percutaneous Approach (ICD-10-PCS; principal; 2022-04-02)
DX: N17.9 Acute kidney failure, unspecified (principal); G93.41 Metabolic encephalopathy; I11.0 Hypertensive heart disease with heart failure; I50.813 Acute on chronic right heart failure; Z51.5 Encounter for palliative care; Z66 Do not resuscitate; Z20.822 Contact with and (suspected) exposure to COVID-19; E80.6 Other disorders of bilirubin metabolism; D63.0 Anemia in neoplastic disease; F03.90 Unspecified dementia, unspecified severity, without behavioral disturbance, psychotic disturbance, mood disturbance, and anxiety; I48.91 Unspecified atrial fibrillation; E79.0 Hyperuricemia without signs of inflammatory arthritis and tophaceous disease; E03.9 Hypothyroidism, unspecified; M10.9 Gout, unspecified; I07.1 Rheumatic tricuspid insufficiency; I95.1 Orthostatic hypotension; C50.911 Malignant neoplasm of unspecified site of right female breast; C50.912 Malignant neoplasm of unspecified site of left female breast; Z90.13 Acquired absence of bilateral breasts and nipples; Z96.651 Presence of right artificial knee joint; Z98.41 Cataract extraction status, right eye; Z90.710 Acquired absence of both cervix and uterus; Z98.890 Other specified postprocedural states; Z88.8 Allergy status to other drugs, medicaments and biological substances; Z79.01 Long term (current) use of anticoagulants; Z79.51 Long term (current) use of inhaled steroids; Z79.899 Other long term (current) drug therapy
CPT/HCPCS: 36415; 71045; 80048; 80053; 80076; 80162; 81001; 83010; 83615; 83735; 83880; 85007; 85025; 85045; 85060; 86850; 86880; 86900; 86901; 86922; 87088; 87186; 93005; 93010; 93306; 94640; 94760; 96374; 97110; 97116; 97161; 97162; 97168; 97530; 97535; 99285-25; A9270; J0696; J1940; J2405; J2920; J7121; U0003